=== PATIENT | female | born 1945 | race Caucasian/White ===

== ENCOUNTER → 2017-09-07 11:04 | Outpatient (CLI) | payer MEDICARE, MEDICAID, SELFPAY ==
[2017-09-07 12:57] LABS: Hemoglobin A1c 5.9 % (4.2-6.3)
[2017-09-07 13:11] LABS: BUN 15 mg/dL (7-18); Creatinine, Serum 0.67 mg/dL (0.55-1.02); EST Glomerular Filtration Rate 93 mL/min (>60); Est Glom Filt Rate - Afr Amer 112 mL/min (>60); Glucose 83 mg/dL (74-106)
[2017-09-07 13:12] LABS: AST(SGOT) 17 U/L (15-37); Alanine Aminotransfer ALT/SGPT 21 U/L (13-56); Albumin, Serum 3.8 g/dL (3.2-5.0); Alkaline Phosphatase 72 U/L (45-117); Anion Gap 8 (5-15); BUN/Creat Ratio 22.5 RATIO (10-20); Bilirubin, Direct 0.07 mg/dL (0.00-0.30); Calcium,Total 9.1 mg/dL (8.5-10.1); Chloride 107 mmol/L (98-107); Cholesterol 190 mg/dL (200); Globulin 3.3 g/dL (2.2-4.2); High Density Lipoprotein 56 mg/dL; Protein, Total 7.1 g/dL (6.4-8.2); Sodium Level 140 mmol/L (136-145); Triglycerides 192 mg/dL; Very Low Density Lipoprotein 38 mg/dL (5-40)
[2017-09-07 14:30] LABS: Microalbumin,Random Urine < 5.0 mg/L (NO RANGE EST.)
== END ==
PROVIDERS: Family Provider Family Medicine; PCP Family Medicine; Visit Provider Family Medicine
DX: E11.9 Type 2 diabetes mellitus without complications (principal); I10 Essential (primary) hypertension
CPT/HCPCS: 36415; 80048; 80061; 80076; 82043; 82570; 83036

== ENCOUNTER → 2018-05-08 10:16 | Outpatient (CLI) | payer MEDICARE, MEDICAID, SELFPAY ==
--- NOTE | 2018-05-08 10:21 | BI_ITS ---
MAMMOGRAPHY - BILATERAL SCREENING 3-D NALLLEY SYNTHESIS REASON FOR EXAM: Female, 72 years old. Bilateral Screening 3-D tomosynthesis PERTINENT HISTORY: History of breast cancer in 2 sisters. History of stereotactic biopsy. Prior bilateral excisional breast biopsies. TECHNIQUE: Digital bilateral breast nallely (3D mammographic acquisition) in the CC and MLO projections. 2-D mediolateral oblique (MLO) and craniocaudad (CC) views of both breasts were obtained. CAD: Full Field Digital Mammography with Computer Added Detection was performed. COMPARISON: November 10, 2016, October 04, 2015 FINDINGS: The breast composition is extremely dense tissue. Scattered benign calcifications are seen. No dense spiculated masses or suspicious microcalcifications are identified. No architectural distortion is identified. There is no skin thickening or retraction. There has been no significant change since the prior study. BI/SCREENING MAMM (CAD), BILAT IMPRESSION: No mammographic signs of malignancy. Routine yearly mammograms recommended. ASSESSMENT CATEGORY: BIRADS Category 2: Benign. A letter regarding these results will be sent to the patient by the facility within 30 days. FOLLOW UP RECOMMENDATION: Yearly follow up mammogram recommended. (A) Approximately 10% of breast cancers are not detected by mammography. A normal mammogram should not delay biopsy of a clinically suspicious abnormality. Electronically Signed: Tobias Shepherd MD at 12:05 EST , Service support ,
--- NOTE | 2018-05-08 10:32 | BD_ITS ---
STUDY: DUAL ENERGY X-RAY ABSORPTIOMETRY / DXA REASON FOR EXAM: Female, 72 years old. The patient is postmenopausal. Loss of height. TECHNIQUE: Bone Mineral Density (BMD) measurements of lumbar spine and bilateral hips were obtained. COMPARISON: Comparison is made with prior study dated August 25, 2014. FINDINGS: Lumbar Spine (L1-L4): g/cm2 (0.822) / T-score (-3.0) / Z-score (-1.3) Findings are suggestive of osteoporosis with a high fracture risk. Increased kyphosis. Left Femur Total: g/cm2 (0.714) / T-score (-2.3) / Z-score (-0.8) Left Femoral Neck: g/cm2 (0.711) / T-score (-2.4) / Z-score (-0.6) Right Femur Total: g/cm2 (0.720) / T-score (-2.3) / Z-score (-0.7) Right Femoral Neck: g/cm2 (0.757) / T-score (-2.0) / Z-score (0.3) The T-Scores on the most recent prior examination were: Lumbar Spine (L1-L4): There has been worsening of bone density since the previous examination. Left Femur Total: which represents an improvement of 0.1%. Right Femur Total: which represents a worsening of 0.8%. BD/Dexa Bone Density Study IMPRESSION: The patient is considered osteoporotic as outlined below according to World Perico Organization (WHO) criteria with a high fracture risk. There has been worsening of bone density since the previous examination. Reference Information: The T-score is the number of standard deviations above or below the standard which is normal for young adults at their peak bone mineral density. The World Health Organization (WHO) interprets the T-scores as follows: Above -1 Normal bone density Between -1 and -2.5 Osteopenia Equal to / or below -2.5 Osteoporosis As a practical clinical guideline, osteopenia may be graded as follows: Mild -1 through -1.5 Moderate -1.6 through -2.0 Severe -2.1 through -2.4 The Z-score is the number of standard deviations above or below age-matched controls. A Z-score of less than -1.5 would be considered abnormal. References: 1. NIH Osteoporosis and Related Bone Diseases http://www.osteo.org 2. International Society for Clinical Densitometry http://www.iscd.org 3. National Osteoporosis Foundation http://www.nof.org Electronically Signed: Shay Montez MD at 7:47 EST Tel [phone], Service support ,
== END ==
PROVIDERS: Family Provider Family Medicine; PCP Family Medicine; Referring Provider Family Medicine; Visit Provider Family Medicine
DX: N95.9 Unspecified menopausal and perimenopausal disorder (principal); Z12.31 Encounter for screening mammogram for malignant neoplasm of breast
CPT/HCPCS: 77063; 77067; 77080

== ENCOUNTER → 2018-06-28 16:07 | Outpatient (CLI) | payer MEDICARE, MEDICAID, SELFPAY ==
--- NOTE | 2018-06-28 11:45 | LES_PTH ---
PATIENT: JOSE FONTANEZ LOC: [facility] U#:[id number] AGE/SX: 79/F ROOM: RE06/28/[address]: Dr. Liza Rose MD : 1945 BED: DIS: SPEC #: [id number] RECD: 06/28/18 15:28 STATUS: ALIREZA EB #: [id number] JASON: 06/28/18 11:[address]: Liza Rose DEPT: SURGICAL PATHOLOGY RECD BY: Juan Palacios Tissues: Inguinal region, NOS Procedures: Surgery Specimen Level IV HEADER OPERATION: Neoplasm excision PRE-OP DIAGNOSIS: Neoplasm of left groin TISSUE SUBMITTED: Neoplasm of left groin MICROSCOPIC DIAGNOSIS Left groin neoplasm, excisional biopsy: Basal cell carcinoma with focal ulceration (0.5 cm in greatest width), completely excised in the planes of sections examined. SJ:bharat 07/02/18 COMMENT Case has been reviewed in consultation with Dr. Mast who concurs with the above diagnosis. IDC:AM MICROSCOPIC DESCRIPTION Slides are reviewed. GROSS DESCRIPTION Received is one container labeled with the patient's name and not further designated. The specimen consists of an irregular piece of an-white skin measuring 1.8 x 0.7 cm and up to 0.2 cm in thickness. The skin surface shows an irregular brownish lesion measuring 0.5 x 0.5 cm. The specimen is inked and submitted entirely in one cassette. It will be serially sectioned at the time of embedding. / SJ:bharat 07/01/18 TC:0 CPT: 78766
== END ==
PROVIDERS: Family Provider Family Medicine; PCP Family Medicine; Referring Provider Family Medicine; Visit Provider Family Medicine
DX: D49.89 Neoplasm of unspecified behavior of other specified sites (principal)
CPT/HCPCS: 88305

== ENCOUNTER → 2018-11-19 08:38 | Outpatient (CLI) | payer MEDICARE, MEDICAID, SELFPAY ==
--- NOTE | 2018-11-19 08:44 | RAD_ITS ---
STUDY: X-RAY - RIGHT KNEE REASON FOR EXAM: Female, 73 years old. Right knee pain. TECHNIQUE: 4 view(s) of the knee. COMPARISON: None. FINDINGS: Normal visualized distal femur. Normal visualized proximal tibia and fibula. There is arthrosis of the proximal tibiofibular articulation. There is no acute fracture, dislocation or destructive osseous pathology. There is moderate degenerative arthrosis of the medial femorotibial compartment with moderate joint space narrowing. There is mild degenerative arthrosis of the lateral femorotibial compartment. There is moderate degenerative arthrosis of the patellofemoral articulation. The soft tissue structures are unremarkable. RAD/Knee 4 or More Views IMPRESSION: Degenerative arthrosis. Electronically Signed: Jose Andrade DO at 16:53 EDT Tel [phone], Service support ,
== END ==
PROVIDERS: Family Provider Family Medicine; PCP Family Medicine; Referring Provider Family Medicine; Visit Provider Family Medicine
DX: M17.11 Unilateral primary osteoarthritis, right knee (principal)
CPT/HCPCS: 73564

== ENCOUNTER 2018-12-23 07:00 | Outpatient (RCR) | payer MEDICARE, MEDICAID, SELFPAY ==
--- NOTE | 2018-11-26 09:00 | HP.PTEVAL ---
Patient's Visit Information JOSE FONTANEZ is a 73 year old F referred to Physical Therapy by Liza Rose MD with a diagnosis of Right Knee OA. Date of Evaluation: 11/26/18 Physical Therapist: April Green DPT - Visit Plan Frequency: 2x /Week Duration: 4 Weeks Plan: Focus on LE and core strength for functional mobility- Right Knee OA. 11/26/17 HEP given: bolster extn, quad set, SLR (knee straight or bent), hip add with ball, hip abduction. - Subjective Findings: Patient reports right knee pain about 2 years- insidous onset. Saw Dr. Arguelles who took x-rays and diagnosed with OA. Worst is when she sits for a while then gets up and tries to move and she can't stand for a long period of time (anything over 5 min). Pain is located along the whole knee- hard to pinpoint an exact location. Does radiate to the calf but not to the foot. Describes the pain as achy but other times its a sharp pain- feels like it catches. Sometimes it feels like it juju under her and it feels unstable. No N/T in the LE. No hip or back pain. Worst: last 48 hours-4/10 in the last week: 11/20 Best: 0/10 Eases: Ibuprofen, rest. Sleep: disturbed- hard to get comfortable back or side sleeper. X-rays showed moderate arthritis. A few years ago they wanted to do surgery but it was not a good time in her life. Very active in her everyday tasks. Work: does not work outside of her home. PMHx: DM, anxiety, allergies. Meds: Boneva, Singulair, Zyrtec. - Objective Posture: FH, RS- can correct but does not maintain. Gait: from standing after sitting- pt had to stand for 15 seconds before she took her first step- the first steps were severely antalgic- it smoothed out at as she ambulated. She has decreased step on the right LE with poor heel/toe pattern. Stairs: asc- recip with 2 HR- circumduction to place on the next step. Desc non recip sideways with double rail. HR/TR able with UE A and reports discomfort. SLS: WS but reports pain- unable to remove hands from wall. Palpation: tender along medial and lateral joint line. ROM: 25-115 degrees. Sensation: WFL to gross touch throughout LE. Strength: Ankle: 4+/5, Knee: quad set not visible- SLR- can lift approx 5 inches off table then requires A- can not hold. Hip: flexion: 2+/5, Extn: 3+/5, Add: 4-/5, Abd: 4-/5, Core: poor. Flex: HS: severe, Gastroc: moderate - Goals Goal 1:: Patient will be I with HEP and progression Goal Time Frame: 4-6 Weeks Goal 2:: Patient will ambulate >300 feet with a normalized gait pattern Goal Time Frame: 4-6 Weeks Goal 3:: Patient will demo 0 degrees of extension of the right knee Goal Time Frame: 4-6 Weeks Goal 4:: Patient will asc/desc 8 stairs with 2 HR and good pattern Goal Time Frame: 4-6 Weeks - Rehabilitation Potential Physical Therapy Diagnosis: Patient presents with hypomobility- she has decreased ROM, strength and muscular endurance in the right knee leading to abnormal gait and increased pain with ADL's. Rehabilitation Potential: Fair - Anticipated Interventions Patient/Client Instruction: Educate patient on: Benefits of Fitness Program Therapeutic Exercise to Include: Strength training, Endurance training, Balance training, Body mechanics, Postural training, Flexibilty training, Gait and locomotor training, Passive ROM, Active ROM, Dynamic Lumbar Stabilization For the Purpose of:: To improve muscle performance and motor function Functional Training to Include: Gait training TENS: Yes Cryotherapy (ice pack, ice massage): Yes Thermo therapy (hot pack): Yes Ultrasound (thermal/non thermal): Yes For the Purpose of:: To decrease pain Thank you for the opportunity to evaluate your patient. For Medicare and Medicare HMO plans, please review the plan of care and approve it. It will need to be FAXED BACK to us at [phone] for Medicare purposes. For Medicare only, by signing this I certify the plan of care. Please let me know if there are questions or concerns regarding this plan of care. Physician Signature: Date:
--- NOTE | 2018-12-23 07:26 | HP.PTREVAL ---
Liza Rose MD, It has been my pleasure to treat JOSE FONTANEZ over the last 8 visits for Right Knee OA. Please see the progress note below for an update on the physical therapy plan of care! Subjective: Patient reports that she had a minor flare when she was packing this weekend. The knee is better depending on what she does. When you she stands she has to give it a minute- depends on how long she has to sit. Worst: 3/10 Best: 0/10. Feels that she can continue I home exercise unless it flares up really bad. Objective/Function: Posture: FH, RS- can correct but does not maintain. Gait: from standing after sitting- pt had to stand for 5 seconds before she took her first step- the first steps were moderatly antalgic- it smoothed out at as she ambulated. She has decreased step on the right LE with decreased heel/toe pattern. Stairs: asc/desc- recip with 1 HR- HR/TR able with UE A. SLS: WS no pain- unable to remove hands from wall. Palpation: not tender ROM: 10-115 degrees. Sensation: WFL to gross touch throughout LE. Strength: Ankle: 5/5, Knee: quad set visible- SLR- can perform I Hip: flexion: 4-/5, Extn: 4/5, Add: 4+/5, Abd: 4+/5, Core: fair. Flex: HS: severe, Gastroc: moderate Plan Plan: Discharge to I HEP Goals Goal 1:: Patient will be I with HEP and progression Goal Time Frame: 4-6 Weeks Goal Progress: Goal Met Goal 2:: Patient will ambulate >300 feet with a normalized gait pattern Goal Time Frame: 4-6 Weeks Goal Progress: Progressing Goal 3:: Patient will demo 0 degrees of extension of the right knee Goal Time Frame: 4-6 Weeks Goal Progress: Progressing Goal 4:: Patient will asc/desc 8 stairs with 2 HR and good pattern Goal Time Frame: 4-6 Weeks Goal Progress: Progressing Anticipated Interventions Patient/Client Instruction: Educate patient on: Benefits of Fitness Program Therapeutic Exercise to Include: Strength training, Endurance training, Balance training, Body mechanics, Postural training, Flexibilty training, Gait and locomotor training, Passive ROM, Active ROM, Dynamic Lumbar Stabilization For the Purpose of:: To improve muscle performance and motor function Functional Training to Include: Gait training TENS: Yes Cryotherapy (ice pack, ice massage): Yes Thermo therapy (hot pack): Yes Ultrasound (thermal/non thermal): Yes For the Purpose of:: To decrease pain Please do not hesitate to contact me at [phone] by phone or if you have questions or concerns regarding this new plan of care! Sincerely, CHELLY AlvaradoT
--- NOTE | 2019-02-21 08:14 | HP.PT.NRP ---
HP - Discharge Summary (1) - Patient Information JOSE FONTANEZ was seen in my office for initial evaluation on 11/26/18. The following Plan of Care was established for this patient: Initial Frequency: 2x /Week Initial Duration: 4 Weeks - Anticipated Interventions Patient/Client Instruction: Educate patient on: Benefits of Fitness Program Therapeutic Exercise to Include: Strength training, Endurance training, Balance training, Body mechanics, Postural training, Flexibilty training, Gait and locomotor training, Passive ROM, Active ROM, Dynamic Lumbar Stabilization For the Purpose of:: To improve muscle performance and motor function Functional Training to Include: Gait training TENS: Yes Cryotherapy (ice pack, ice massage): Yes Thermo therapy (hot pack): Yes Ultrasound (thermal/non thermal): Yes For the Purpose of:: To decrease pain This patient was last seen in our office . Pertinent comments regarding their Physical therapy will appear below: Patient has not attended PT in over 8 weeks- appropriate for d/c and return to MD for further evaluation as needed At this point I will be discontinuing this patient from physical therapy. I would be happy to see this patient again in the future if found appropriate by the physician. Thank you! CHELLY AlvaradoT
== END 2018-12-23 19:00 | disposition home or self-care (01) ==
LOC: PT 07:00
PROVIDERS: Family Provider Family Medicine; PCP Family Medicine; Referring Provider Family Medicine; Visit Provider Family Medicine
DX: M17.11 Unilateral primary osteoarthritis, right knee (principal)
CPT/HCPCS: 97110; 97161; 97164

== ENCOUNTER → 2019-04-02 08:40 | Outpatient (CLI) | payer MEDICARE, MEDICAID, SELFPAY ==
--- NOTE | 2019-04-02 08:49 | RAD_ITS ---
HISTORY: pain under right breast, NKI EXAMINATION/TECHNIQUE: XR Ribs Unilateral W/ PA Chest Min 3 Views: Right COMPARISON: None FINDINGS: LINES/DEVICES: 2 surgical clips within the right breast likely related to imaging guided biopsies LUNGS: Age related pulmonary fibrosis and pulmonary hyperexpansion is mild No pneumothorax. MEDIASTINUM AND CARDIOVASCULAR STRUCTURES: Cardiac silhouette not enlarged. Central airways and mediastinal contour are unremarkable. RIBS AND OSSEOUS STRUCTURES: Unremarkable. No evidence of displaced rib fractures. Levoscoliosis to the upper thoracic spine is mild RAD/Ribs Uni Min 3V w/PA Chest IMPRESSION: Negative chest and ribs series. at 0307 Reported and signed by: Ivan Taylor MD Electronically Signed: Ivan Taylor MD at 3:06 EST Tel , Service support ,
== END ==
PROVIDERS: Family Provider Family Medicine; PCP Family Medicine; Referring Provider Family Medicine; Visit Provider Family Medicine
DX: N64.4 Mastodynia (principal)
CPT/HCPCS: 71101

== ENCOUNTER → 2019-04-04 08:55 | Outpatient (CLI) | payer MEDICARE, MEDICAID, SELFPAY ==
--- NOTE | 2019-04-04 09:19 | US_ITS ---
STUDY: ULTRASOUND BREAST - RIGHT REASON FOR EXAM: Female, 73 years old. TECHNIQUE: Axial and longitudinal images of the RIGHT breast were performed with a high resolution ultrasound transducer. # OF IMAGES: 15 COMPARISON: None. FINDINGS: RIGHT Breast: There is slight prominence of the fibroglandular tissue without evidence of any masses or cysts identified in the right base. US/Breast Limited Unilateral IMPRESSION: Negative ultrasound of the right breast Electronically Signed: Monet Kelley, at 12:14 EST Tel , Service support ,
--- NOTE | 2019-04-04 09:19 | BI_ITS ---
MAMMOGRAPHY - BILATERAL DIAGNOSTIC REASON FOR EXAM: Female, 73 years old. One-week history of breast pain in the lower inner quadrant of the right breast. PERTINENT HISTORY: Sisters with breast cancer. Remote right excisional breast biopsies and ultrasound guided right breast biopsy. TECHNIQUE: Digital bilateral breast titus (3D mammographic acquisition) in the CC and MLO projections. 2-D mediolateral oblique (MLO) and craniocaudad (CC) views of both breasts were obtained. CAD: Full Field Digital Mammography with Computer Added Detection was performed. COMPARISON: Comparison is made with prior examination dated May 08, 2018 and November 10, 2016. FINDINGS: Breast Composition: The breasts are extremely dense, which lowers the sensitivity of mammography. There are no dominant masses or suspicious calcifications. 2 tissue markers are once again seen in the retroareolar region of the right breast. Stable calcifications in the upper outer quadrant of the left breast suggestive of calcifying fibroadenoma. No other significant abnormalities are identified. There has been no significant change since the prior study. BI/DIAG MAMM W/CADVAUGHN IMPRESSION: Stable bilateral diagnostic mammogram. One year follow-up recommended. (A) ASSESSMENT CATEGORY: BIRADS Category 2: Benign. A letter regarding these results will be sent to the patient by the facility within 30 days. Approximately 10% of breast cancers are not detected by mammography. A normal mammogram should not delay biopsy of a clinically suspicious abnormality. Electronically Signed: Shay Montez, at 10:41 EST , Service support ,
== END ==
PROVIDERS: Family Provider Family Medicine; PCP Family Medicine; Referring Provider Family Medicine; Visit Provider Family Medicine
DX: N64.4 Mastodynia (principal); Z80.3 Family history of malignant neoplasm of breast
CPT/HCPCS: 76642; 77062; 77066; G0279

== ENCOUNTER → 2019-08-06 17:27 | Outpatient (CLI) | payer MEDICARE, MEDICAID, SELFPAY | PROVIDERS: PCP Family Medicine; Referring Provider Family Medicine; Visit Provider Family Medicine | DX: R10.2 Pelvic and perineal pain (principal) | CPT/HCPCS: 87086; 87088 ==

== ENCOUNTER → 2019-09-08 11:00 | Outpatient (CLI) | payer MEDICARE, MEDICAID, SELFPAY ==
--- NOTE | 2019-09-08 11:03 | VDLE_ITS ---
Reason For Study: Pain RIGHT GSV is normal. CFV is compressible, spontaneous, phasic, competent and demonstrates normal augmentation. FV is compressible, spontaneous, phasic, competent and demonstrates normal augmentation. POP V is compressible, spontaneous, phasic, competent and demonstrates normal augmentation. T/P Trunk is compressible. PTV is compressible. RT PerV is compressible. Procedure Exam performed in department. A preliminary report was called and/or faxed to [facility]. Interpretation Summary Deep veins of the right lower extremity are patent and compressible segmentally. There is no evidence of right lower extremity deep vein thrombosis. Valvular competence appears intact within the proximal deep venous system on the right . The right great saphenous vein appears patent and compressible segmentally. Ordering Physician: Liza Rose Referring Physician: Liza Rose Performed By: Torie Britt RVT
== END ==
PROVIDERS: PCP Family Medicine; Referring Provider Family Medicine; Visit Provider Family Medicine
DX: M79.604 Pain in right leg (principal)
CPT/HCPCS: 93971

== ENCOUNTER → 2019-09-15 17:07 | Outpatient (CLI) | payer MEDICARE, MEDICAID, SELFPAY ==
--- NOTE | 2019-09-15 17:10 | RAD_ITS ---
STUDY: X-RAY - LEFT FOOT CLINICAL: Female, 73 years old. left foot pain and swelling, unsure of injury TECHNIQUE: 3 view(s) of the foot. COMPARISON: None. FINDINGS: Moderate plantar heel spur. Normal talus, calcaneus, and tarsal bones. Normal visualized subtalar, talonavicular, calcaneocuboid, tarsal and tarsometatarsal articulations. Normal metatarsi. Normal metatarsophalangeal joint of the great toe. Normal tibial and fibular sesamoid bones. Normal interphalangeal joint of the great toe. Normal phalanges of the great toe. Normal second through fifth metatarsophalangeal joints. Normal interphalangeal joints and phalanges of the lesser toes. The soft tissue structures are unremarkable. RAD/Foot min 3 Views IMPRESSION: Moderate heel spur otherwise negative Electronically Signed: Desmond Bryant MD at 23:33 EDT , Service support ,
== END ==
PROVIDERS: PCP Family Medicine; Referring Provider Family Medicine; Visit Provider Family Medicine
DX: M79.672 Pain in left foot (principal)
CPT/HCPCS: 73630

== ENCOUNTER → 2019-11-03 16:43 | Outpatient (CLI) | payer MEDICARE, MEDICAID, SELFPAY ==
--- NOTE | 2019-11-03 16:46 | RAD_ITS ---
STUDY: X-RAY - UNILATERAL RIBS ( RIGHT ) WITH CHEST REASON FOR EXAM: Female, 74 years old. Rib and chest pain TECHNIQUE - RIBS: 2 view(s) of the ribs. TECHNIQUE - CHEST: Single PA view of the chest. COMPARISON: 04/02/2019 FINDINGS - RIBS: Normal visualized ribs without a demonstrated fracture. FINDINGS - CHEST: There are interstitial changes of the lungs. There is no demonstrated pleural abnormality. Normal size heart. Normal mediastinum and ama. Normal visualized pulmonary arteries. Normal visualized aortic arch and descending thoracic aorta. Normal visualized thoracic spine. Normal visualized ribs, clavicles, and shoulders. There is no demonstrated abnormality of the visualized soft tissue structures of the upper abdomen. RAD/Ribs Uni Min 3V w/PA Chest IMPRESSION: RIBS: Normal x-ray examination of the ribs. CHEST: Chronic interstitial changes, no acute findings Electronically Signed: Jose Retana MD at 8:05 EDT , Service support ,
--- NOTE | 2019-11-03 16:46 | RAD_ITS ---
STUDY: X-RAY - LEFT WRIST REASON FOR EXAM: Female, 74 years old. FALL ONE HOUR AGO, BRUISING TO WRIST TECHNIQUE: 3 view(s) of the wrist were obtained. COMPARISON: None. FINDINGS: There is demineralization of the radius and ulna. There is mild arthrosis of the radiocarpal articulation. There is a neutral ulnar variance. There is demineralization of the carpal bones. There is intracarpal arthrosis between the scaphoid and trapezium. Remaining intercarpal joint spaces fairly well maintained. There is mild arthrosis of the carpometacarpal articulation of the thumb. Normal second through fifth carpometacarpal articulations. Normal visualized metacarpal bones. Mild nonspecific soft tissue swelling. There is no demonstrated acute fracture. However, wrist fractures in patients of this age can be subtle, if there is strong clinical concern of a fracture, recommend further evaluation with CT. RAD/Wrist min 3 Views IMPRESSION: Demineralization of the osseous structures with polyarticular arthrosis most notably between the scaphoid and trapezium. No demonstrated fracture, please see discussion above Mild nonspecific soft tissue swelling Electronically Signed: Jose Retana MD at 7:53 EDT , Service support ,
== END ==
PROVIDERS: PCP Family Medicine; Referring Provider Family Medicine; Visit Provider Family Medicine
DX: S60.211A Contusion of right wrist, initial encounter (principal); S60.212A Contusion of left wrist, initial encounter
CPT/HCPCS: 71101; 73110

== ENCOUNTER → 2019-11-26 11:50 | Outpatient (CLI) | payer MEDICARE, MEDICAID, SELFPAY ==
--- NOTE | 2019-11-26 11:53 | RAD_ITS ---
STUDY: X-RAY - UNILATERAL RIBS ( RIGHT ) WITH CHEST REASON FOR EXAM: Female, 74 years old. Fall. Lower axillary rib pain. TECHNIQUE - RIBS: 4 view(s) of the ribs. TECHNIQUE - CHEST: Single PA view of the chest. COMPARISON: Chest and right RIBS, November 03, 2019. FINDINGS - RIBS: Normal visualized ribs without a demonstrated fracture. FINDINGS - CHEST: The lungs are well expanded. There is no new mass or infiltrate. Mild chronic interstitial coarsening is again noted.. There is no demonstrated pleural abnormality. Normal size heart. Normal mediastinum and ama. Normal visualized pulmonary arteries. There is atherosclerotic calcification of the aortic arch with tortuosity. There are diffuse degenerative changes of the visualized thoracic spine. There is degenerative osteoarthritis of the bilateral shoulders. There is no demonstrated abnormality of the visualized soft tissue structures of the upper abdomen. RAD/Ribs Uni Min 3V w/PA Chest IMPRESSION: RIBS: Normal x-ray examination of the ribs. CHEST: No acute cardiopulmonary disease or interval change. Electronically Signed: Jose Andrade DO at 16:55 EDT Tel [phone], Service support ,
--- NOTE | 2019-11-26 11:53 | RAD_ITS ---
STUDY: X-RAY - ABDOMEN/PELVIS REASON FOR EXAM: Female, 74 years old. PAIN, CONSTIPATION TECHNIQUE: AP supine and upright views of the abdomen and pelvis. COMPARISON: None. FINDINGS: Normal visualized lung bases. There is an unremarkable bowel gas pattern. There is no demonstrated free abdominal air. The visualized liver, spleen and kidneys are grossly normal in size and morphology. Normal soft tissue structures. Normal visualized osseous structures. RAD/Abdomen Single View IMPRESSION: Normal x-ray examination of the abdomen and pelvis. Electronically Signed: Clem Mcclendon MD at 12:41 EDT Tel , Service support ,
== END ==
PROVIDERS: PCP Family Medicine; Referring Provider Nurse Practitioner Adult Health; Visit Provider Nurse Practitioner Adult Health
DX: R07.81 Pleurodynia (principal); R10.9 Unspecified abdominal pain
CPT/HCPCS: 71101; 74018

== ENCOUNTER → 2020-01-09 15:50 | Outpatient (CLI) | payer MEDICARE, MEDICAID, SELFPAY ==
--- NOTE | 2020-01-09 11:30 | LES_PTH ---
PATIENT: JOSE FONTANEZ LOC: [facility] U#:[id number] AGE/SX: 79/F ROOM: RE01/09/[address]: Dr. Miles Duran MD : 1945 BED: DIS: SPEC #: [id number] RECD: 01/09/20 15:16 STATUS: ALIREZA OLSENSamira #: [id number] JASON: 01/09/20 11:[address]: Miles Duran DEPT: SURGICAL PATHOLOGY RECD BY: Miles Pressley ENTERED: 01/12/20 09:07 SP TYPE: Lesion OTHR DR: Dr. Liza Rose MD Tissues: Skin of eyelid, NOS Procedures: Surgery Specimen Level IV HEADER OPERATION: Lesion excision LLL PRE-OP DIAGNOSIS: Lesion right lower lid TISSUE SUBMITTED: Lesion right lower lid MICROSCOPIC DIAGNOSIS Lesion right lower lid, excisional biopsy: Seborrheic keratosis. BJ:bharat 01/13/20 MICROSCOPIC DESCRIPTION Slides are reviewed. GROSS DESCRIPTION Received in fixative is one container labeled with the patient's name and designated LLL. The specimen consists of a piece of an-light brown skin measuring 0.3 x 0.2 x 0.1 cm. The specimen is totally submitted in one cassette. / SJ:bharat 01/12/20 TC:1 CPT: 49393
== END ==
PROVIDERS: PCP Family Medicine; Referring Provider Ophthalmology; Visit Provider Ophthalmology
DX: H02.9 Unspecified disorder of eyelid (principal)
CPT/HCPCS: 88305

== ENCOUNTER 2020-03-04 21:28 | Emergency (ER) | payer MEDICARE, MEDICAID, SELFPAY ==
[2020-03-04 21:29] VITALS: BP 142/79; PULSE 106; RESP 18; TEMP 39.4; O2SAT 93; BMI 31.1
[2020-03-04 22:32] VITALS: BP 132/69; PULSE 104; RESP 18; TEMP 39.3; O2SAT 96
--- NOTE | 2020-03-04 22:50 | RAD_ITS ---
STUDY: X-RAY CHEST REASON FOR EXAM: Female, 74 years old. POSITIVE COVID ON 02/19. last few days uncontrolled fever. TECHNIQUE: Single frontal view of the chest. COMPARISON: Chest radiograph from rib series 11/26/2019. FINDINGS: No pneumothorax or pleural effusion. Bilateral pulmonary infiltrates are present. More so within the left mid and lower lung zone. Normal size heart. Aortic calcifications. There are diffuse degenerative changes of the visualized thoracic spine. There is degenerative changes of the bilateral shoulders. There is no demonstrated abnormality of the visualized soft tissue structures of the upper abdomen. RAD/Chest 1 View (Portable) IMPRESSION: Bilateral pulmonary infiltrates. Nonspecific. Given patient''s history this could represent atypical viral infectious process such as Covid 19. Recommend follow-up imaging to ensure resolution. Electronically Signed: John Camarillo, at 23:06 EDT Tel , Service support ,
--- NOTE | 2020-03-04 22:52 | ED.DCSUM_ITS ---
History of Present Illness Chief Complaint: Fever Informant: Patient, Family Narrative: Patient is a 74-year-old female with a past medical history of diabetes who presents to the emergency department for fever. She states that she was diagnosed with Covid on 02/20/2020. She was concerned because her temperature was up to 104 at home. She tried to take Tylenol around 10 AM this morning but vomited it up immediately. She has not tried anything else for this. She denies any significant shortness of breath. She does have a mild cough that is nonproductive. She has been having intermittent nausea/vomiting. She had 2 episodes today. She denies any diarrhea. No abdominal pain or chest pain. Past Medical History - Allergies and Home Meds Allergies/Adverse Reactions: Allergies alendronate sodium [From Fosamax] Allergy (Verified 03/04/20 21:33) Itching amoxicillin [From Augmentin] Adverse Reaction (Verified 03/04/20 21:33) Diarrhea cephalexin [From Keflex] Adverse Reaction (Verified 03/04/20 21:33) NEEDS FOLLOW-UP tongue sore. not swollen clavulanic acid [From Augmentin] Adverse Reaction (Verified 03/04/20 21:33) Diarrhea Primary Care Physician: Liza Rose MD [Primary Care Provider] - Prior records reviewed: Yes Past Medical History: - - Diabetes Smoking Status: Former smoker Review of Systems All systems negative except as indicated General: Reports: Fever Eyes: Denies: Visual changes - bilaterally, Diplopia ENT: Denies: Rhinorrhea, Sore throat Cardiovascular: Denies: Chest pain, Palpitations Respiratory: Reports: Cough. Denies: Dyspnea, Dyspnea on exertion Gastrointestinal: Reports: Nausea, Vomiting. Denies: Abdominal pain, Diarrhea, Melena, Hematochezia Genitourinary: Denies: Dysuria, Hematuria, Frequency Musculoskeletal: Denies: Back pain, Extremity Pain Skin: Denies: Rash, Wounds Neurological: Denies: Headache, Weakness, Numbness Physical Exam Vital Signs/Narrative: Vital Signs Temp Pulse Resp BP Pulse Ox 03/04/20 21:29 102.9 F H 106 H 18 142/79 H 93 Inital Vital Signs reviewed: Yes General: Well nourished, Well developed, No Acute Distress Head: Normocephalic, Atraumatic Eyes: Perrl, EOMI ENT: Moist mucous membranes, No rhinorrhea Neck: Supple, Nontender Cardiovascular: Regular rhythm, No murmurs, Tachycardia Respiratory: No distress, CTA bilaterally, Chest nontender Abdomen: Soft, Nontender, Nondistended, Normal bowel sounds Back: Nontender, Normal Inspection Extremities: Nontender. Negative for: Edema, Calf Tenderness Skin: Normal color, No rash Neurological: Alert, Oriented x3, Cranial nerves II-XII grossly intact, Normal Strength, Normal Sensation Psychological: Normal affect, Normal Mood Diagnostic/Tx/Re-eval - Medical Decision Making Patient presents the emerge department after being diagnosed with coronavirus and she is having uncontrollable fevers. She is only try to take 1 dose of Tylenol earlier today but vomited it back up. Upon arrival to the emergency department she is febrile and mildly tachycardic. She otherwise in no acute distress. She denies any shortness of breath. Will check basic lab work, chest x-ray. Will give a dose of Zofran and retry dose of Tylenol. Patient's temperature did come down after the dose of Tylenol. She not have any repeat episodes of vomiting after the Zofran. She does feel much better at this time. X-ray did show infiltrates consistent with coronavirus. She does not have an elevated white blood cell count. Patient did make aware to me that she is currently on doxycycline. She can continue to take this. I will write a prescription for Zofran for home treatment of her nausea symptoms. She can continue to take Tylenol as needed. I did advise the patient to buy a pulse oximeter if she develops any shortness of breath to monitor oxygen saturation. If she develops any worsening symptoms she can return to the emergency department anytime. She understands and is agreeable this plan. Will discharge home in stable condition. All questions answered. ED Disposition - Plan for ED Patient: Disposition: Home or Assisted Living Diagnosis: Pneumonia due to 2019 novel coronavirus, Fever Instructions: ED Fever Control (Adult) Prescriptions: Ondansetron [Zofran Odt] 4 mg PO Q8H PRN PRN 3 Days #10 tab PRN Reason: Nausea/Vomiting Prescription Printed Referrals: Liza Rose MD [Primary Care Provider] -
[2020-03-04] MEDS: Ondansetron 4 MG/2 ML Vial IV (22:57)
[2020-03-04] MEDS: Acetaminophen 325 MG Tablet 650 MG PO (23:01)
[2020-03-04 23:09] LABS: Absolute Lymphocyte Count 1.14 X10^3/uL (0.83-4.51); Absolute Neutrophil Count 2.9 X10^3/uL (2.0-7.7); Basophil# 0.01 X10^3/uL; Basophil% 0.2 % (0-1); Hematocrit 40.9 % (37-47); Hemoglobin 13.6 g/dL (12.0-15.0); Lymphocyte # 1.14 X10^3/ul (4.0); Lymphocyte % 24.8 % (19-41); Mean Corp Hgb Conc 33.3 g/dL (32-36); Mean Corpuscular Hgb 29.7 pg (27.0-32.0); Mean Corpuscular Volume 89.3 fL (81-99); Mean Platelet Vol. 10.6 fl (6.2-12.0); Monocyte% 10.9 % (0-10); NRBC Flagged by Analyzer 0 % (0-5); Neutrophil # 2.94 X10^3/uL (2.7-7.7); Neutrophil % 63.9 % (47-70); Platelet Count 150 K/mm3 (150-450); RBC Distribution Width CV 12.8 % (11.6-14.6); RBC Distribution Width SD 42.2 fl (35.1-43.9); Red Blood Count 4.58 M/mm3 (4.2-5.4); White Blood Count 4.6 K/mm3 (4.4-11.0)
[2020-03-04 23:17] LABS: ALB/GLOB Ratio 0.9 RATIO (0.9-2.4); AST(SGOT) 17 U/L (15-37); Alanine Aminotransfer ALT/SGPT 17 U/L (13-56); Albumin, Serum 3.2 g/dL (3.2-5.0); Alkaline Phosphatase 86 U/L (45-117); Anion Gap 7 (5-15); BUN 11 mg/dL (7-18); BUN/Creat Ratio 14.8 RATIO (10-20); Calcium,Total 8.2 mg/dL (8.5-10.1); Chloride 105 mmol/L (98-107); Creatinine, Serum 0.74 mg/dL (0.55-1.02); EST Glomerular Filtration Rate 81 mL/min (>60); Est Glom Filt Rate - Afr Amer 98 mL/min (>60); Estimated Creatinine Clearance 41.45 ml/min; Globulin 3.7 g/dL (2.2-4.2); Glucose 125 mg/dL (74-106); Lactic Acid 0.8 mmol/L (0.4-1.9); Potassium 3.4 mmol/L (3.5-5.1); Protein, Total 6.9 g/dL (6.4-8.2); Sodium Level 137 mmol/L (136-145)
[2020-03-05 00:13] VITALS: BP 123/67; PULSE 105; RESP 18; TEMP 37.2; O2SAT 94
[2020-03-05 01:08] VITALS: BP 123/72; PULSE 85; RESP 20; O2SAT 94
== END 2020-03-05 01:05 | disposition home or self-care (01) ==
PROVIDERS: Emergency Provider Emergency Medicine; PCP Family Medicine
DX: U07.1 COVID-19 (principal); J12.89 Other viral pneumonia; R50.9 Fever, unspecified; Z87.891 Personal history of nicotine dependence
CPT/HCPCS: 71045; 80053; 83605; 84484; 85025; 87040; 96374; 99285; J7030; A4216; J2405

== ENCOUNTER → 2020-05-04 14:06 | Outpatient (CLI) | payer MEDICARE, MEDICAID, SELFPAY | PROVIDERS: PCP Family Medicine; Visit Provider Family Medicine | DX: R35.0 Frequency of micturition (principal) | CPT/HCPCS: 87086 ==

== ENCOUNTER → 2020-08-24 12:48 | Outpatient (CLI) | payer MEDICARE, MEDICAID, SELFPAY ==
[2020-08-24 15:51] LABS: AST(SGOT) 16 U/L (15-37); Alanine Aminotransfer ALT/SGPT 23 U/L (13-56); Anion Gap 5 (5-15); BUN 14 mg/dL (7-18); BUN/Creat Ratio 19.4 RATIO (10-20); Calcium,Total 9.4 mg/dL (8.5-10.1); Chloride 105 mmol/L (98-107); Cholesterol 230 mg/dL (200); Creatinine, Serum 0.72 mg/dL (0.55-1.02); EST Glomerular Filtration Rate 84 mL/min (>60); Est Glom Filt Rate - Afr Amer 102 mL/min (>60); Glucose 91 mg/dL (74-106); High Density Lipoprotein 63 mg/dL; Sodium Level 139 mmol/L (136-145); Triglycerides 215 mg/dL; Very Low Density Lipoprotein 43 mg/dL (5-40)
[2020-08-24 15:55] LABS: Hemoglobin A1c 5.5 % (3.8-5.6)
[2020-08-24 16:19] LABS: Microalbumin,Random Urine 6.7 mg/L (NO RANGE EST.); Microalbumin:Creatinine Ratio 9.5 mg/g CRE (<30 mg/g CRE)
== END ==
PROVIDERS: PCP Family Medicine; Referring Provider Family Medicine; Visit Provider Family Medicine
DX: E11.9 Type 2 diabetes mellitus without complications (principal); E78.5 Hyperlipidemia, unspecified
CPT/HCPCS: 36415; 80048; 80061; 82043; 82570; 83036; 84450; 84460

== ENCOUNTER → 2020-10-14 15:09 | Outpatient (CLI) | payer MEDICARE, MEDICAID, SELFPAY ==
--- NOTE | 2020-10-14 15:12 | VDLE_ITS ---
Reason For Study: Leg pain RIGHT GSV is normal. CFV is compressible, spontaneous, phasic, competent and demonstrates normal augmentation. FV is compressible, spontaneous, phasic, competent and demonstrates normal augmentation. POP V is compressible, spontaneous, phasic, competent and demonstrates normal augmentation. T/P Trunk is compressible. PTV is compressible. RT PerV is compressible. Nonvascularized structure notes in the popliteal space measuring approximently 1.18 x 1.17 x 5.53 cm. Procedure This is a venous duplex using B-mode, color flow and spectral Doppler. Exam performed in department. A preliminary report was called and/or faxed to [facility]. VL/Venous Duplex US, Unilateral Interpretation Summary Deep veins of the right lower extremity are patent and compressible segmentally . There is no evidence of right lower extremity deep vein thrombosis. Valvular competence karl ears intact within the proximal deep venous system on the right . The right great saphenous vein a ppears patent and compressible segmentally. A non-vascular, hypoechoic structure is noted in the right popliteal space, measuring 1.18 cm x 1.17 cm x 5.53 cm. This may represent a poplteal cys t. Clinical correlation is advised. Ordering Physician: Farhad Kimble Referring Physician: Liza Rose M.D. Performed By: Torie Britt RVT
== END ==
PROVIDERS: PCP Family Medicine; Referring Provider Family Medicine; Visit Provider Family Medicine
DX: M79.604 Pain in right leg (principal)
CPT/HCPCS: 93971

== ENCOUNTER 2020-11-25 16:21 | Emergency (ER) | payer MEDICARE, MEDICAID, SELFPAY ==
[2020-11-25 16:23] VITALS: BP 132/76; PULSE 65; RESP 16; TEMP 36.7; O2SAT 97; BMI 33.5
--- NOTE | 2020-11-25 17:56 | EX.ED.DYSGE1 ---
HPI History of Present Illness Chief Complaint: Sore Throat Detail of Chief Complaint: Pain to left side of neck Informant: patient Narrative Narrative: Patient presents to the emergency department with sore throat and pain left-sided of her neck that started out a week ago. Patient was seen by her primary care physician initially and told she had a viral pharyngitis. She had a negative strep test about 1 week ago. Patient states that she felt somewhat better initially but then the pain became more severe and again was seen yesterday by her primary care physician. Patient presents again with continued pain in her throat especially the left side. Patient states that it hurts to swallow. She rates her pain an 8 out of 10. She denies fevers or recent illness otherwise. Prior similar symptoms: No PFSH PFSH Home Medications cetirizine 10 mg PO DAILY 03/04/20 [History Last Taken Unknown] montelukast 10 mg PO DAILY 03/04/20 [History Last Taken Unknown] atorvastatin [Lipitor] 10 mg PO DAILY 11/25/20 [History Last Taken Unknown] multivitamin 1 tab PO DAILY 11/25/20 [History Last Taken Unknown] Allergy/AdvReac Type Severity Reaction Status Date / Time alendronate sodium Allergy Itching Verified 11/25/20 16:22 [From Fosamax] amoxicillin [From Augmentin] AdvReac Diarrhea Verified 11/25/20 16:22 cephalexin [From Keflex] AdvReac NEEDS Verified 11/25/20 16:22 FOLLOW-UP clavulanic acid AdvReac Diarrhea Verified 11/25/20 16:22 [From Augmentin] Social History Smoking Status: Former smoker ROS ROS ED Constitutional Constitutional ED: Reports systems reviewed and no addt'l complaints, except as documented; Denies body ache(s), change in weight or chills Eyes Eyes: Denies acute decrease in peripheral vision, change in vision, double vision or loss of vision ENT ENT ED: Reports none and sore throat; Denies ear pain, lip swelling, loss taste/smell, neck pain or otalgia Cardiovascular Cardiovascular: Reports none; Denies abdominal pain, chest pain with activity, leg edema, lightheadedness, palpitations, rapid heart rate or syncope Respiratory/Chest Respiratory/Chest: Reports none; Denies change in mental status, dry cough, dyspnea, hemoptysis, shortness of breath at rest or shortness of breath with exertion Gastrointestinal Gastrointestinal: Reports none; Denies abdominal pain, change in stool character, diarrhea, hematemesis, hematochezia, melena, rectal bleeding or vomiting Genitourinary Genitourinary ED: Reports none; Denies abdominal discomfort, anuria, dysuria, genital pain or polyuria Musculoskeletal Musculoskeletal: Reports none; Denies arthralgias, back pain, difficulty walking, extremity pain, muscle weakness or myalgias Integumentary Reports none; Denies abscess or rash Neurologic Neurologic: Reports none; Denies abnormal gait, confusion, focal weakness, frequent falls, headache(s), loss of vision, numbness, paresthesias, radicular pain, vertigo or weakness Psychiatric Psychiatric: Reports systems reviewed and no addt'l complaints, except as documented and none; Denies behavioral changes, confusion, difficulty concentrating, hallucinations, suicidal ideation, tactile hallucinations or visual hallucinations Endocrine Endocrinology: Denies none, cold intolerance, excessive sweating, fatigue or heat intolerance Hematologic/Lymphatic Hematologic/Lymphatic: Reports none; Denies anemia, easy bleeding or easy bruising Allergic/Immunologic Allergic/Immunologic ED: Denies as per HPI, none, lip swelling, mouth swelling, throat swelling, tongue swelling or hives EXAM Physical Exam Const Vital Signs: 11/25/20 16:23 Temperature 98.0 F Temperature Source Temporal Pulse Rate 65 Respiratory Rate 16 Blood Pressure 132/76 H Blood Pressure Mean 94 Pulse Ox 97 Oxygen Delivery Method Room Air Positive well nourished and well developed General Appearance ED: well developed and NAD HEENT Reports TM's clear and moist mucous membranes HEENT Narrative: No masses or adenopathy palpated in the neck. Pharynx nonerythematous. Uvula midline without trismus. normocephalic and atraumatic; Negative for trauma or tenderness Tympanic Membrane ED: Yes TM's clear Eyes PERRL and EOMs intact bilaterally General Eye ED: Negative for pale conjunctiva or scleral icterus Neck no lymphadenopathy, supple and no JVD General: Negative for tenderness Chest Wall inspection of chest normal and palpation of chest normal Chest: Negative for tenderness Resp normal respiratory effort and clear to auscultation bilaterally Effort and Inspection: Negative for respiratory distress or pain with movement Auscultation: Negative for rhonchi, wheezes or diminished lung sounds Cardio regular rate, regular rhythm, S1 normal heart sound, S2 normal heart sound and no murmurs Peripheral Pulses: pulses 2+ throughout GI normal to inspection, nondistended, normoactive bowel sounds, soft to palpation, non-tender, non-distended and no masses Back/Spine no CVA tenderness and no thoracic nor lumbar tenderness Extremity normal to inspection General Extremety ED: Negative for edema General Extremity: Negative for edema Neuro oriented x3, CN's II-XII intact bilaterally, no sensory deficits noted and gait normal Sensorium / Orientation: awake, alert, oriented to person, oriented to place and oriented to time Motor Exam: strength 5/5 throughout and strength abnormal Psych mental status grossly normal Skin no rashes or lesions noted and no wounds MDM MDM MDM Narrative Medical decision making narrative: Patient's labs were unremarkable. CT scan of the soft tissue neck showed a 2.2 cm nodule of the left thyroid and they recommended ultrasound follow-up. I discussed this with the patient and her family members. Patient will be referred to ENT as well. Lab Data Attestation: I reviewed the patient's lab results. Labs: Laboratory Results - last 24 hr 11/25/20 11/25/20 18:30 18:30 WBC 8.2 RBC 4.69 Hgb 14.1 Hct 42.5 MCV 90.6 MCH 30.1 MCHC 33.2 RDW Std Deviation 41.9 RDW Coeff of Francy 12.7 Plt Count 233 MPV 9.5 Immature Gran % (Auto) 0.500 Neut % (Auto) 56.4 Lymph % (Auto) 31.4 [place] % (Auto) 9.4 Eos % (Auto) 2.2 Baso % (Auto) 0.1 Absolute Neuts (auto) 4.6 Absolute Lymphs (auto) 2.58 Nucleated RBC % 0 Sodium 140 Potassium 4.2 Chloride 103 Carbon Dioxide 31.0 Anion Gap 6 BUN 10 Creatinine 0.74 Estim Creat Clear Calc 39.04 Est GFR (MDRD) Af Amer 99 Est GFR (MDRD) Non-Af 82 BUN/Creatinine Ratio 13.6 Glucose 99 Calcium 9.2 Troponin I High Sens 3.6 Radiography Diagnostic Testing: Radiology Impression Soft Tissue Neck CT 11/25/20 19:00 IMPRESSION: No acute findings in the neck. 2.2 cm nodule left lobe thyroid. If not previously evaluated, routine thyroid ultrasound recommended. Chronic left maxillary sinusitis. Individualized dose optimization techniques were used for this CT. at 1926 Reported and signed by: Randy Contreras MD Electronically Signed: Randy Contreras MD at 19:25 EDT Tel , Service support , EKG Initial EKG: Attestation: I personally reviewed and interpreted this EKG as follows: Comments: Sinus rhythm with a ventricular rate of [address] changes. Discharge Plan Triage Chief Complaint: Sore Throat ED Provider: Tomas Goldstein Dx/Rx/DC Orders Clinical Impression: Pharyngitis, Left thyroid nodule Instructions: Common Thyroid Problems, ED Pharyngitis, Viral Prescriptions: No Action montelukast 10 MG tablet 10 mg PO DAILY RF: 0 cetirizine 10 MG capsule 10 mg PO DAILY RF: 0 multivitamin Tablet 1 tab PO DAILY RF: 0 atorvastatin [Lipitor] 10 mg tablet 10 mg PO DAILY RF: 0 Primary Care Provider: Liza Rose Referrals: Liza Rose MD [Primary Care Provider] - 3-5 Days Leonid Muñiz MD [STAFF PHYSICIAN] - 3-5 Days Activity Restrictions/Additional Instructions: Follow-up with your family doctor regarding the nodule in your thyroid as you will need an ultrasound to further evaluate this. Disposition Disposition: Home, Self Care
--- NOTE | 2020-11-25 17:57 | EKG12_ITS ---
Test Reason : DYSRHYTHMIA Blood Pressure : / mmHG Vent. Rate : 067 BPM Atrial Rate : 067 BPM P-R Int : 156 ms QRS Dur : 084 ms QT Int : 396 ms P-R-T Axes : 069 048 048 degrees QTc Int : 418 ms Normal sinus rhythm Low voltage QRS Nonspecific ST abnormality Abnormal ECG Confirmed by ALE STORY, KONRAD ([id number]), editor in chief MARYLOU LOZANO ([id number]) on 11/29/2020 9:44:10 AM Referred By: GIANNA Confirmed By:LINDA AGUILERA MD
[2020-11-25 18:38] LABS: Absolute Lymphocyte Count 2.58 X10^3/uL (0.83-4.51); Absolute Neutrophil Count 4.6 X10^3/uL (2.0-7.7); Basophil# 0.01 X10^3/uL; Basophil% 0.1 % (0-1); Eosinophil# 0.18 X10^3/uL; Eosinophils% 2.2 % (0-5); Hematocrit 42.5 % (37-47); Hemoglobin 14.1 g/dL (12.0-15.0); Lymphocyte # 2.58 X10^3/ul (0.83-4.51); Lymphocyte % 31.4 % (19-41); Mean Corp Hgb Conc 33.2 g/dL (32-36); Mean Corpuscular Hgb 30.1 pg (27.0-32.0); Mean Corpuscular Volume 90.6 fL (81-99); Mean Platelet Vol. 9.5 fl (6.2-12.0); Monocyte# 0.77 X10^3/uL; Monocyte% 9.4 % (0-10); NRBC Flagged by Analyzer 0 % (0-5); Neutrophil # 4.64 X10^3/uL (2.7-7.7); Neutrophil % 56.4 % (47-70); Platelet Count 233 K/mm3 (150-450); RBC Distribution Width CV 12.7 % (11.6-14.6); RBC Distribution Width SD 41.9 fl (35.1-43.9); Red Blood Count 4.69 M/mm3 (4.2-5.4); White Blood Count 8.2 K/mm3 (4.4-11.0)
[2020-11-25 18:54] LABS: Anion Gap 6 (5-15); BUN 10 mg/dL (7-18); BUN/Creat Ratio 13.6 RATIO (10-20); Calcium,Total 9.2 mg/dL (8.5-10.1); Chloride 103 mmol/L (98-107); Creatinine, Serum 0.74 mg/dL (0.55-1.02); EST Glomerular Filtration Rate 82 mL/min (>60); Est Glom Filt Rate - Afr Amer 99 mL/min (>60); Estimated Creatinine Clearance 39.04 ml/min; Glucose 99 mg/dL (74-106); Potassium 4.2 mmol/L (3.5-5.1); Sodium Level 140 mmol/L (136-145); Troponin-I HS 3.6 pg/mL (3.0-53.7)
--- NOTE | 2020-11-25 19:00 | CT_ITS ---
HISTORY: sore throat EXAMINATION: CT Soft Tissue Neck W/ Contrast Injection TECHNIQUE: Helically acquired images were obtained of the neck following IV contrast. A radiation dose optimization technique was used for this scan. IV Contrast dosage and agent: 75mL [id number] COMPARISON: None FINDINGS: NASOPHARYNX: Unremarkable. SUPRAHYOID NECK: Unremarkable oropharynx, oral cavity, parapharyngeal space, and retropharyngeal space. INFRAHYOID NECK: Unremarkable larynx, hypopharynx, and supraglottis. THYROID: Enlarged left lobe with 2.2 cm low-attenuation nodule. SALIVARY GLANDS: Unremarkable. LYMPH NODES: No cervical or supraclavicular lymphadenopathy. VASCULAR STRUCTURES: Unremarkable. VISUALIZED PORTIONS OF THE ORBITS, PARANASAL SINUSES, MASTOID AIR CELLS AND SKULL BASE: Opacification of the left maxillary sinus with adjacent bony sclerosis and thickening. Opacification of left frontal air cell to the extent included. BONES: Degenerative changes. THORACIC INLET: Clear lung apices. CT/Soft Tissue Neck WITH Contrast IMPRESSION: No acute findings in the neck. 2.2 cm nodule left lobe thyroid. If not previously evaluated, routine thyroid ultrasound recommended. Chronic left maxillary sinusitis. Individualized dose optimization techniques were used for this CT. at 1926 Reported and signed by: Randy Contreras MD Electronically Signed: Randy Contreras MD at 19:25 EDT Tel , Service support ,
== END 2020-11-25 20:51 | disposition home or self-care (01) ==
PROVIDERS: Emergency Provider Emergency Medicine; PCP Family Medicine
DX: J02.9 Acute pharyngitis, unspecified (principal); E04.1 Nontoxic single thyroid nodule; Z87.891 Personal history of nicotine dependence; Z79.899 Other long term (current) drug therapy
CPT/HCPCS: 70491; 80048; 84484; 85025; 87880; 93005; 99284; Q9967; A4216

== ENCOUNTER → 2020-12-01 15:00 | Outpatient (CLI) | payer MEDICARE, MEDICAID, SELFPAY ==
[2020-11-25 16:23] VITALS: BMI 33.5
== END ==
PROVIDERS: PCP Family Medicine; Referring Provider Family Medicine; Visit Provider Family Medicine
DX: J02.9 Acute pharyngitis, unspecified (principal)
CPT/HCPCS: 87070

== ENCOUNTER → 2020-12-07 08:07 | Outpatient (CLI) | payer MEDICARE, MEDICAID, SELFPAY ==
[2020-11-25 16:23] VITALS: BMI 33.5
--- NOTE | 2020-12-07 08:12 | US_ITS ---
STUDY: THYROID ULTRASOUND REASON FOR EXAM: Female, 75 years old. NODULE TECHNIQUE: Ultrasound evaluation of the thyroid was performed with real-time and static palacio-scale imaging. COMPARISON: Comparison is made with prior CT scan of the neck dated 11/25/2020. FINDINGS: RIGHT LOBE: The right lobe of the thyroid gland measures 4.4 cm x 1.5 cm x 1.8 cm. There is a homogeneous echotexture. There are no demonstrated solid, cystic or complex lesions. LEFT LOBE: The left lobe of the thyroid gland is enlarged and measures 5.3 cm x 2.8 cm x 2.5 cm. There is a homogeneous echotexture. There is a 3.4 cm x 2.9 cm x 2.4 cm complex solid and cystic nodule in the lower pole. This corresponds to the CT finding. A biopsy is suggested. ISTHMUS: The isthmus measures 3 mm. The regional lymph nodes are normal. US/Thyroid IMPRESSION: Enlarged left lobe of the thyroid with a 3.4 cm x 2.9 cm x 2.4 cm complex solid and cystic nodule in the lower pole. Biopsy is recommended. Electronically Signed: Shay Montez MD at 20:31 EDT , Service support ,
== END ==
PROVIDERS: PCP Family Medicine; Referring Provider Family Medicine; Visit Provider Family Medicine
DX: E04.1 Nontoxic single thyroid nodule (principal)
CPT/HCPCS: 76536

== ENCOUNTER → 2020-12-15 15:32 | Outpatient (CLI) | payer MEDICARE, MEDICAID, SELFPAY ==
--- NOTE | 2020-12-15 | FLU_PTH ---
PATIENT: JOSE FONTANEZ LOC: [facility] U#:[id number] AGE/SX: 79/F ROOM: RE12/15/[address]: Dr. He Moran MD : 1945 BED: DIS: SPEC #: [id number] RECD: 12/15/20 15:28 STATUS: ALIREZA PARSON #: [id number] JASON: 12/15/20 00:[address]: He Moran DEPT: CYTOLOGY RECD BY: Juan Palacios ENTERED: 12/16/20 08:15 SP TYPE: Fluid OTHR DR: Dr. Liza Rose MD Tissues: A - Thyroid gland, NOS B - Thyroid gland, NOS Procedures: Special Stain Group II Surgery Specimen Level IV Cytospin Fluid HEADER OPERATION: Left thyroid fine needle aspiration PRE-OP DIAGNOSIS: Left thyroid nodule TISSUE SUBMITTED: A ? Left thyroid fluid for cytology, B ? Left thyroid FNA slides x8 DIAGNOSIS CYTOLOGY A. Left thyroid nodule fluid for cytology (cytospin and cell block): Bloody specimen. See comment. B. Left thyroid nodule, FNA (smears): A few clusters of benign follicular cells and macrophages are noted. The specimen is limited in evaluation due to lack of adequate number of follicular cells. See comment. SJ:bharat 12/17/2020 COMMENT A. Follicular cells are not seen. B. The findings are suggestive of benign colloid nodule with cystic changes. Correlation with clinical, radiologic findings and appropriate follow up are necessary. Case has been reviewed in consultation with Dr. Mast who concurs with the above diagnosis. IDC:AM CYTOLOGY STUDY Slides are reviewed. CYTOLOGY GROSS A - Received is 4 ml of red cloudy fluid labeled with the patient's name and and designated per the requisition as left thyroid. Submitted for cytology preparation including cell block. B - Received are eight smears labeled with the patient's name and designated per the requisition as left thyroid. Submitted for staining. / bharat 12/16/2020 TC:5 CPT: 44507, 34737, 13454
[2020-12-15 07:24] VITALS: BMI 33.8
== END ==
PROVIDERS: PCP Family Medicine; Referring Provider Surgery; Visit Provider Surgery
DX: E04.1 Nontoxic single thyroid nodule (principal)
CPT/HCPCS: 88108; 88305; 88313

== ENCOUNTER → 2020-12-21 09:48 | Outpatient (CLI) | payer MEDICARE, MEDICAID, SELFPAY ==
[2020-12-15 07:24] VITALS: BMI 33.8
[2020-12-21 11:39] LABS: T4 Free Direct 1.04 ng/dL (0.76-1.46); Thyroid Stim Hormone (TSH) 1.44 uIU/mL (0.358-3.74)
== END ==
PROVIDERS: PCP Family Medicine; Visit Provider Surgery
DX: E04.1 Nontoxic single thyroid nodule (principal)
CPT/HCPCS: 36415; 84439; 84443

== ENCOUNTER 2021-01-06 07:41 | Day surgery (SDC) | payer MEDICARE, MEDICAID, SELFPAY ==
[2020-12-15 07:24] VITALS: BMI 33.8
[2021-01-06] VITALS (7 sets, daily range): BP systolic 124–148; BP diastolic 71–91; PULSE 82–94; RESP 16–18; TEMP 21.1–36.4; O2SAT 93–99; BMI 32.1
[2021-01-06] MEDS: Lactated Ringers 1,000 ML 100 ML IV ×2 (08:15→10:00)
--- NOTE | 2021-01-06 09:45 | HP.PCM_ITS ---
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 Required: No Is patient in pain?: No Allergies alendronate sodium [From Fosamax] Allergy (Verified 12/15/20 08:23) Itching amoxicillin [From Augmentin] Adverse Reaction (Verified 12/15/20 08:23) Diarrhea cephalexin [From Keflex] Adverse Reaction (Verified 12/15/20 08:23) NEEDS FOLLOW-UP clavulanic acid [From Augmentin] Adverse Reaction (Verified 12/15/20 08:23) Diarrhea Medications cetirizine 10 mg PO DAILY 03/04/20 [History Confirmed 12/15/20] montelukast 10 mg PO DAILY 03/04/20 [History Confirmed 12/15/20] atorvastatin [Lipitor] 10 mg PO DAILY 11/25/20 [History Confirmed 12/15/20] multivitamin 1 tab PO DAILY 11/25/20 [History Confirmed 12/15/20] citalopram 10 mg tablet mg PO 12/15/20 [History Confirmed 12/15/20] omeprazole 20 mg capsule,delayed release 20 mg PO DAILY 12/15/20 [History Confirmed 12/15/20] Is last menstrual period known: No Post menopausal: Yes Patient : No PFSH Medical History (Updated 12/15/20 @ 10:[address] He Moran MD) Depression Environmental allergies GERD (gastroesophageal reflux disease) Hyperlipidemia Hypoglycemia Osteoarthritis Surgical History History of cholecystectomy History of colonoscopy History of hysterectomy History of lumpectomy of both breasts History of tonsillectomy and adenoidectomy Family History (Updated 12/15/20 @ 08:23 by Roxann Greco) Father Heart disease Emphysema lung Sister Breast cancer Cancer lung w/ mets Sister Breast cancer Mother Colon cancer Social History Smoking Status: Former smoker HPI HPI HPI: JOSE BROOKS, is a 75 F who presents to the office today for new thyroid nodule/cyst. They are referred for surgical consultation from Dr. Rose. This was discovered during work-up for patient's complaint of a sore throat. This complaint is persisted for the last couple of weeks. Then on 11/25/2020, Ms. Brooks noticed that her throat felt like it was closing up. However, she adds that there was a laterality associated with this sensation and felt that the compression was coming more from her left side. CT imaging was obtained of the neck and demonstrated a left-sided thyroid nodule. This was followed with an evaluation by ENT with laryngoscopy. No pharyngeal or laryngeal abnormalities were noted to explain the patient's sore throat sensation. A reflex ultrasound of the thyroid was obtained on 12/07/2020. This confirmed the presence of a 3.4 cm x 2.9 cm x 2.4 cm cystic lesion of the left thyroid lobe occasioning this referral. Additionally, Mrs. Brooks remarks that she has been self?medicating with omeprazole as she was concerned acid reflux may be to blame for her sore throat sensation and she has noticed improvement in her symptoms. From an endocrine perspective, they do not have a history of weight gain (10 pounds over an undetermined time but she acknowledges her activity level is decreased due to arthritic pains). There is history of recent fatigue. They do have a history of heat intolerance but with further questioning this is more consistent with flushing related to hypoglycemic episodes and resolves with a meal. They do not experience difficulty with swallowing. They do not complain of a new cough. They do not appreciate new voice changes. They do not have a family history of thyroid disorders or endocrinopathies. History of prior radiation exposure unknown. Patient's last thyroid function studies included a TSH of 1.41 from 03/10/2016. Lastly during routine questioning/screening with review of systems, it was uncovered that patient is overdue for screening colonoscopy. She states her last scope was 10 to 12 years ago. There were no significant findings and a 10-year follow-up was recommended. She describes her bowel movements as occurring 3-4 times daily and are soft in consistency. She denies noting any blood with these stools. She does not regularly take fiber. She has no personal history of diverticulitis. ROS General General: Yes weight change and fatigue; No appetite, colon cancer, breast cancer or weakness HEENT HEENT: No difficulty swallowing, eye injury, eye surgery, swollen glands or hoarseness Endo Endocrine: No thyroid disease, diabetes mellitus, thyroid cancer, Hair loss, heat intolerance or cold intolerance Musc Musculoskeletal: Yes arthritis; No back problems, rheumatoid arthritis, gout or joint pain Cardio Cardiovascular: No murmur, pacemaker, heart disease, atrial fibrillation, high blood pressure, heart attack, heart stent, palpitations, shortness of breat with exertion or chest pain Psych Psychiatric: Yes depression; No anxiety or hearing voices Resp Respiratory: No shortness of breath, No sleep apnea, No cough, No COPD, No asthma, No emphysema and No wheezing Gastro Gastrointestinal: No abdominal pain, No nausea or vomiting, No diarrhea, No constipation, No blood in stool, Yes acid reflux, No hemorrhoids, No ulcers, No gallbladder problem and No black,tarry stools Jose Hematologic: No blood thinners, No blood disorders, No bleeding, No anemia and No blood clots Neuro Neurologic: No weakness Exam Const General: cooperative and no acute distress Orientation: alert and oriented x3 Neck Neck: normal visual inspection, full ROM and no lymphadenopathy Thyroid: asymmetrical (Left-sided nodule palpated just superior to the left clavicle with swallow) Carotids: no bruits Resp Effort & Inspection: normal respiratory effort and able to speak in complete sentences Auscultation: clear to auscultation bilaterally, no rales, no rhonchi and no wheezes Cardio Rate: regular rate Rhythm: regular rhythm Heart Sounds: S1 normal and S2 normal Office Procedures Fine Needle Aspiration Provider Documentation Details: Indication: Left thyroid nodule (heterogeneous but primarily cystic) After obtaining patient consent and conducting a timeout amongst those present, the procedure was commenced by locating the suspicious nodule in the inferior pole of the left thyroid lobe using ultrasound. Superficially, the skin was cleaned with an alcohol swab and a wheal of local anesthetic was created after instilling 4ml 1% lidocaine. Then, under ultrasound guidance, multiple passes were made into the solid portion of the thyroid nodule using a 25-gauge needle. Once an adequate specimen was detected within the hub of the needle and bottom of the syringe, this was handed off the field. A second pass was made in a similar manner using a 22-gauge needle. This specimen, also, was passed off the field for cytopathologic evaluation. A third pass was using another 22-gauge needle to aspirate the cystic portion of the lesion. A total of 3 mL of serous aspirate were obtained. External pressure was applied to the neck to assist with hemostasis. Then the surface of the neck was cleaned, dried, and a bandage was applied. Patient was gradually returned to the sitting position and after short period of monitoring was dismissed. Wound care instructions and expectations regarding pathologic processing were discussed prior to dismissal. Complications: None Estimated blood loss: <1 ml Alert Ayala Alert Billing: Yes FNA [id number] Thyroid Assessment and Plan Assessment and Plan (1) Left thyroid nodule: Status: Acute Comment: Sonographic appearance consistent with a TI-RADS 3 and is predominantly cystic. Low suspicion for malignancy. However, the larger size of this lesion could arias ve contributed to patient's globus sensation. Patient should note symptomatic improvement following aspiration procedure during clinic visit today. However, patient is advised that recurrence is fairly common. Should this be the case for Ms. Brooks, she may require left thyroid lobectomy. Additionally, I would like to obtain thyroid function studies. Orders: Orders: T4 Free Direct Today Thyroid Stim Hormone (TSH) Today Plan - Dr. He Moran MD: ?We will follow up 2 days FNA procedure with patient regarding cytopathologic results ?Patient to obtain thyroid function studies, ordered (2) GERD (gastroesophageal reflux disease): Status: Suspected Comment: Patient's pharyngitis symptomatically improved following empiric treatment with omeprazole. Patient has more remote history of gastroesophageal reflux disease. She denies any prior history of upper endoscopy. I find it reasonable to perform simultaneous upper endoscopy with the lower endoscopy as indicated below. Plan - Dr. He Moran MD: ?EGD with colonoscopy ?Continue omeprazole ?Patient to be careful to avoid later mealtimes and advised to eat at least 2 hours prior to lying flat. (3) Family history of colon cancer requiring screening colonoscopy: Status: Acute Comment: Patient overdue for screening colonoscopy. This was due 2020 per her recollection. Patient does have a family history of colon cancer, albeit in an elderly mother who was diagnosed in her early 80s. No current/concerning symptoms Plan - Dr. He Moran MD: ?EGD with colonoscopy. I have discussed the above with the patient. I have offered the patient colonoscopy for evaluation. I have explained the risks/benefits of the procedure and described the procedure. - the patient understands and agrees to proceed. I have answered all the patient's questions to the patient's satisfaction and the patient has no further questions. The patient has been given instructions for the colon cleansing preparation. Plan Details Other Orders: Orders: Colonoscopy Today EGD Today Coding Level of Care Code Off vis,new,level 4 Diagnoses Left thyroid nodule E04.1 GERD (gastroesophageal reflux disease) K21.9 Family history of colon cancer requiring screening colonoscopy Z80.0 CPT Codes FNA - Fine Needle Aspiration: 72367 Thyroid (08128) I have examined the patient the following changes are noted: Patient doing well from a swallowing standpoint and no further recurrence of globus sensation related to her thyroid. She reports that she completed her prep for this endoscopy with little difficulty. She is now experiencing clear output with her bowel movements. Unfortunately we were denied coverage for her planned upper endoscopy procedures so we will proceed with colonoscopy only this morning.
--- NOTE | 2021-01-06 10:56 | OP.COLON_ITS ---
Patient Name: Deepa Brooks Procedure Date: 01/06/2021 9:50 AM Date of : 1945 Age: 75 Procedure: Colonoscopy Indications: Screening for colorectal malignant neoplasm Providers: He Moran MD Referring MD: Liza Rose Medicines: See the Anesthesia note for documentation of the administered medications Patient Profile: Last Colonoscopy: 10 years ago. Complications: No immediate complications. Procedure: Pre-Anesthesia Assessment: - The heart rate, respiratory rate, oxygen saturations, blood pressure, adequacy of pulmonary ventilation, and response to care were monitored throughout the procedure. - The anesthesia plan was to use monitored anesthesia care (MAC). After I obtained informed consent, the scope was passed under direct vision. Throughout the procedure, the patient's blood pressure, pulse, and oxygen saturations were monitored continuously. The colonoscope was introduced through the anus and advanced to the cecum, identified by the ileocecal valve. The colonoscopy was performed without difficulty. The patient tolerated the procedure well. The quality of the bowel preparation was adequate to identify polyps. The ileocecal valve was photographed. Scope In: 10:05:10 AM Scope Withdrawal Time 0 hours 18 minutes 38 seconds Scope Out: 10:44:21 AM Total Procedure Duration Time 0 hours 39 minutes 11 seconds Findings: Many large-mouthed diverticula were found in the sigmoid colon. There was no evidence of diverticular bleeding. No biopsies or other specimens were collected for this exam. Non-bleeding internal hemorrhoids were found during retroflexion. The hemorrhoids were Grade I (internal hemorrhoids that do not prolapse). Impression: - Moderate diverticulosis in the sigmoid colon. There was no evidence of diverticular bleeding. No specimens collected. - Non-bleeding internal hemorrhoids. Recommendation: - Discharge patient to home (ambulatory). - Resume regular diet today. - Await pathology results. - Repeat colonoscopy in 10 years for surveillance. - Continue present medications. Procedure Code(s): --- Professional --- G0121, Colorectal cancer screening; colonoscopy on individual not meeting criteria for high risk CPT copyright 2017 [employer]. All rights reserved. The codes documented in this report are preliminary and upon child care provider review may be revised to meet current compliance requirements. He Moran MD 01/06/2021 10:55:26 AM This report has been signed electronically. Number of Addenda: 0 Note Initiated On: 01/06/2021 9:50 AM
--- NOTE | 2021-01-06 10:57 | OP.CCLET_ITS ---
01/06/2021 Liza Rose [address] [place] [address] Re : Colonoscopy procedure for Deepa Hernandezatt Dear Dr. Rose This procedure was performed on December. My impressions and recommendations are as follows: Impressions : - Moderate diverticulosis in the sigmoid colon. There was no evidence of diverticular bleeding. No specimens collected. - Non-bleeding internal hemorrhoids. Recommendations : - Discharge patient to home (ambulatory). - Resume regular diet today. - Await pathology results. - Repeat colonoscopy in 10 years for surveillance. - Continue present medications. My findings are described in the full procedure note, which is enclosed. If I can be of further assistance, please feel free to contact me at Doctor phone number(s): , Work: . Sincerely, He Moran MD 01/06/2021 10:55:26 AM This report has been signed electronically.
== END 2021-01-06 11:48 ==
LOC: EN 07:44 → AC 07:46
PROVIDERS: PCP Family Medicine; Referring Provider Family Medicine; Visit Provider Surgery
PROC: 0DJD8ZZ Inspection of Lower Intestinal Tract, Via Natural or Artificial Opening Endoscopic (ICD-10-PCS; CPT 45378; principal; 2021-01-06 08:55)
DX: Z12.11 Encounter for screening for malignant neoplasm of colon (principal); K57.30 Diverticulosis of large intestine without perforation or abscess without bleeding; K64.0 First degree hemorrhoids; E04.1 Nontoxic single thyroid nodule; E78.00 Pure hypercholesterolemia, unspecified; K21.9 Gastro-esophageal reflux disease without esophagitis; F32.9 Major depressive disorder, single episode, unspecified; Z80.0 Family history of malignant neoplasm of digestive organs; Z87.891 Personal history of nicotine dependence; Z79.899 Other long term (current) drug therapy
CPT/HCPCS: G0121; J7120; J2405

== ENCOUNTER 2021-02-03 07:48 | Day surgery (SDC) | payer MEDICARE, MEDICAID, SELFPAY ==
[2021-02-03] VITALS (7 sets, daily range): BP systolic 124–138; BP diastolic 74–84; PULSE 80–89; RESP 16–29; TEMP 36.2–36.9; O2SAT 98–100; BMI 33.3
[2021-02-03] MEDS: Lactated Ringers 1,000 ML 100 ML IV ×2 (08:23→10:15)
--- NOTE | 2021-02-03 09:00 | IMM_PTH ---
PATIENT: JOSE FONTANEZ LOC: EN U#:[id number] AGE/SX: 75/F ROOM: RE02/03/[address]: Dr. He Moran MD : 1945 BED: DIS: 02/03/2021 SPEC #: [id number] RECD: 02/03/21 12:05 STATUS: ALIREZA RESamira #: [id number] JASON: 02/03/21 09:[address]: He Moran DEPT: IMMUNOHISTOCHEMISTRY RECD BY: Kathy Velasco ENTERED: 02/03/21 12:07 SP TYPE: IMMUNO OTHR DR: Dr. Liza Rose MD Tissues: A - Stomach, NOS C - Gastric mucous membrane Procedures: H Pylori (initial) P53 (initial) KI-67 (add) PHYSICIAN & INSTITUTION [place] [id number] SPECIMEN INFORMATION: Tissue Source: A - Antrum biopsy, C - GE junction biopsy Clinical Info: GERD Specimen Number: [id number] A & C CPT code: 22311 x2, 29645 METHODOLOGY: Deparaffinized sections of prefer/formalin-fixed tissue or PAP/DQ stained slides are incubated with monoclonal/polyclonal antibodies/oligonucleotide probes. Localization is made via biotin free immunoperoxidase method. Appropriate controls are performed and reacted as expected. Results on target cell population are indicated in the following table: RESULTS: ANTIBODY / CLONE RESULT Block A H Pylori (polyclonal) negative Block C P53 (DO-7) negative Ki-67 (30-9) negative These tests were developed and their performance characteristics determined by [facility]. They may not have been cleared or approved by the U.S. Food and Drug Administration. The FDA has determined that such clearance or approval is not necessary. The above immunohistochemical/dualISH markers are ordered and reviewed by the pathologist. INTERPRETATION: A. Antrum biopsy: Negative for Helicobacter pylori organisms. C. Gastroesophageal junction, biopsy: No evidence of dysplasia. AM:bharat 02/08/2021
--- NOTE | 2021-02-03 09:00 | EGD_PTH ---
PATIENT: JOSE FONTANEZ LOC: EN U#:[id number] AGE/SX: 75/F ROOM: RE02/03/[address]: Dr. He Moran MD : 1945 BED: DIS: 02/03/2021 SPEC #: [id number] RECD: 02/03/21 11:08 STATUS: ALIREZA EB #: [id number] JASON: 02/03/21 09:[address]: He Moran DEPT: SURGICAL PATHOLOGY RECD BY: Mahin Hirsch ENTERED: 02/03/21 11:37 SP TYPE: EGD BIOPSY OT DR: Dr. Liza Rose MD Tissues: A - Gastric mucous membrane B - Gastric mucous membrane C - Gastric mucous membrane Procedures: Special Stain Group II Surgery Specimen Level IV Alcian Blue/PAS (control) HEADER OPERATION: EGD ([facility] [place]) PRE-OP DIAGNOSIS: GERD TISSUE SUBMITTED: A ? Biopsy antrum for H. pylori and path, B ? Gastric polyp, C ? Biopsy of GE junction MICROSCOPIC DIAGNOSIS A. Gastric antrum, biopsy: Chronic gastritis. See comment. B. Gastric polyp, biopsy: Fragments of fundic gland polyp. C. Gastroesophageal junction, biopsy: Focal goblet cell metaplasia. Chronic inflammation. No evidence of dysplasia. Focal changes of reflux. See comment. AM:bharat 02/04/2021 COMMENT A. The results of immunohistochemistry for Helicobacter pylori will be reported separately ([id number]). C. Alcian blue/PAS stain with matched control supports the above diagnosis. Immunohistochemistry ([id number]) supports the above diagnosis. MICROSCOPIC DESCRIPTION Slides are reviewed. GROSS DESCRIPTION A - Received in fixative is one container labeled with the patient's name and designated antrum biopsy. The specimen consists of multiple irregular fragments of light an soft tissue that in aggregate measure 1 x 0.2 x 0.1 cm. The specimen is totally submitted in one cassette. B - Received in fixative is one container labeled with the patient's name and designated gastric polyp. The specimen consists of multiple irregular fragments of light an soft tissue that in aggregate measure 1 x 0.5 x 0.3 cm. The specimen is totally submitted in one cassette. C - Received in fixative is one container labeled with the patient's name and designated biopsy GE junction. The specimen consists of two irregular fragments of light an soft tissue that in aggregate measure 0.5 x 0.3 x 0.1 cm. The specimen is totally submitted in one cassette. / SJ:rg 02/03/21 TC:3 CPT: 29903 x3, 64984
--- NOTE | 2021-02-03 09:46 | HP.PCM_ITS ---
History and Physical Date of Admission: 02/03/21 Date of Service: 12/15/20 MR#:[id number]: JOSE BROOKSRep #:[id number] Provider:Cinda Ku/Sex: 75/F [facility] Vital Signs 12/15/20 07:24 Height 5 ft 2 in Weight: 185 lb 4 oz BMI 33.8 BP 115/79 Blood Pressure Location Rt brachial Position Sitting Respiration 18 Pulse 85 Pulse Source NIBP Temp 98.2 F Temp Source Temporal Pulse Oximetry (%) 96 Oxygen Delivery Method room air Intake Visit Reasons: CYST THYROID Chief Complaint: abn thyroid US Client Insights Consultant Required: No Is patient in pain?: No Allergies alendronate sodium [From Fosamax] Allergy (Verified 12/15/20 08:23) Itching amoxicillin [From Augmentin] Adverse Reaction (Verified 12/15/20 08:23) Diarrhea cephalexin [From Keflex] Adverse Reaction (Verified 12/15/20 08:23) NEEDS FOLLOW-UP clavulanic acid [From Augmentin] Adverse Reaction (Verified 12/15/20 08:23) Diarrhea Medications cetirizine 10 mg PO DAILY 03/04/20 [History Confirmed 12/15/20] montelukast 10 mg PO DAILY 03/04/20 [History Confirmed 12/15/20] atorvastatin [Lipitor] 10 mg PO DAILY 11/25/20 [History Confirmed 12/15/20] multivitamin 1 tab PO DAILY 11/25/20 [History Confirmed 12/15/20] citalopram 10 mg tablet mg PO 12/15/20 [History Confirmed 12/15/20] omeprazole 20 mg capsule,delayed release 20 mg PO DAILY 12/15/20 [History Confirmed 12/15/20] Is last menstrual period known: No Post menopausal: Yes Patient : No PFSH Medical History (Updated 12/15/20 @ 10:[address] He Moran MD) Depression Environmental allergies GERD (gastroesophageal reflux disease) Hyperlipidemia Hypoglycemia Osteoarthritis Surgical History History of cholecystectomy History of colonoscopy History of hysterectomy History of lumpectomy of both breasts History of tonsillectomy and adenoidectomy Family History (Updated 12/15/20 @ 08:23 by Roxann Greco) Father Heart disease Emphysema lung Sister Breast cancer Cancer lung w/ mets Sister Breast cancer Mother Colon cancer Social History Smoking Status: Former smoker HPI HPI HPI: JOSE BROOKS, is a 75 F who presents to the office today for new thyroid nodule/cyst. They are referred for surgical consultation from Dr. Rose. This was discovered during work-up for patient's complaint of a sore throat. This complaint is persisted for the last couple of weeks. Then on 11/25/2020, Ms. Brooks noticed that her throat felt like it was closing up. However, she adds that there was a laterality associated with this sensation and felt that the compression was coming more from her left side. CT imaging was obtained of the neck and demonstrated a left-sided thyroid nodule. This was followed with an evaluation by ENT with laryngoscopy. No pharyngeal or laryngeal abnormalities were noted to explain the patient's sore throat sensation. A reflex ultrasound of the thyroid was obtained on 12/07/2020. This confirmed the presence of a 3.4 cm x 2.9 cm x 2.4 cm cystic lesion of the left thyroid lobe oc casioning this referral. Additionally, Mrs. Brooks remarks that she has been self?medicating with omeprazole as she was concerned acid reflux may be to blame for her sore throat sensation and she has noticed improvement in her symptoms. From an endocrine perspective, they do not have a history of weight gain (10 pounds over an undetermined time but she acknowledges her activity level is decreased due to arthritic pains). There is history of recent fatigue. They do have a history of heat intolerance but with further questioning this is more consistent with flushing related to hypoglycemic episodes and resolves with a meal. They do not experience difficulty with swallowing. They do not complain of a new cough. They do not appreciate new voice changes. They do not have a family history of thyroid disorders or endocrinopathies. History of prior radiation exposure unknown. Patient's last thyroid function studies included a TSH of 1.41 from 03/10/2016. Lastly during routine questioning/screening with review of systems, it was uncovered that patient is overdue for screening colonoscopy. She states her last scope was 10 to 12 years ago. There were no significant findings and a 10-year follow-up was recommended. She describes her bowel movements as occurring 3-4 times daily and are soft in consistency. She denies noting any blood with these stools. She does not regularly take fiber. She has no personal history of diverticulitis. ROS General General: Yes weight change and fatigue; No appetite, colon cancer, breast cancer or weakness HEENT HEENT: No difficulty swallowing, eye injury, eye surgery, swollen glands or hoarseness Endo Endocrine: No thyroid disease, diabetes mellitus, thyroid cancer, Hair loss, heat intolerance or cold intolerance Musc Musculoskeletal: Yes arthritis; No back problems, rheumatoid arthritis, gout or joint pain Cardio Cardiovascular: No murmur, pacemaker, heart disease, atrial fibrillation, high blood pressure, heart attack, heart stent, palpitations, shortness of breat with exertion or chest pain Psych Psychiatric: Yes depression; No anxiety or hearing voices Resp Respiratory: No shortness of breath, No sleep apnea, No cough, No COPD, No asthma, No emphysema and No wheezing Gastro Gastrointestinal: No abdominal pain, No nausea or vomiting, No diarrhea, No constipation, No blood in stool, Yes acid reflux, No hemorrhoids, No ulcers, No gallbladder problem and No black,tarry stools Jose Hematologic: No blood thinners, No blood disorders, No bleeding, No anemia and No blood clots Neuro Neurologic: No weakness Exam Const General: cooperative and no acute distress Orientation: alert and oriented x3 Neck Neck: normal visual inspection, full ROM and no lymphadenopathy Thyroid: asymmetrical (Left-sided nodule palpated just superior to the left clavicle with swallow) Carotids: no bruits Resp Effort & Inspection: normal respiratory effort and able to speak in complete sentences Auscultation: clear to auscultation bilaterally, no rales, no rhonchi and no wheezes Cardio Rate: regular rate Rhythm: regular rhythm Heart Sounds: S1 normal and S2 normal Office Procedures Fine Needle Aspiration Provider Documentation Details: Indication: Left thyroid nodule (heterogeneous but primarily cystic) After obtaining patient consent and conducting a timeout amongst those present, the procedure was commenced by locating the suspicious nodule in the inferior pole of the left thyroid lobe using ultrasound. Superficially, the skin was cleaned with an alcohol swab and a wheal of local anesthetic was created after instilling 4ml 1% lidocaine. Then, under ultrasound guidance, multiple passes were made into the solid portion of the thyroid nodule using a 25-gauge needle. Once an adequate specimen was detected within the hub of the needle and bottom of the syringe, this was handed off the field. A second pass was made in a similar manner using a 22-gauge needle. This specimen, also, was passed off the field for cytopathologic evaluation. A third pass was using another 22-gauge needle to aspirate the cystic portion of the lesion. A total of 3 mL of serous aspirate were obtained. External pressure was applied to the neck to assist with hemostasis. Then the surface of the neck was cleaned, dried, and a bandage was applied. Patient was gradually returned to the sitting position and after short period of monitoring was dismissed. Wound care instructions and expectations regarding pathologic processing were discussed prior to dismissal. Complications: None Estimated blood loss: <1 ml Alert Groover And Striper Operator Alert Billing: Yes FNA [id number] Thyroid Assessment and Plan Assessment and Plan (1) Left thyroid nodule: Status: Acute Comment: Sonographic appearance consistent with a TI-RADS 3 and is predominantly cystic. Low suspicion for malignancy. However, the larger size of this lesion could have contributed to patient's globus sensation. Patient should note symptomatic improvement following aspiration procedure during clinic visit today. However, patient is advised that recurrence is fairly common. Should this be the case for Ms. Brooks, she may require left thyroid lobectomy. Additionally, I would like to obtain thyroid function studies. Orders: Orders: T4 Free Direct Today Thyroid Stim Hormone (TSH) Today Plan - Dr. He Moran MD: ?We will follow up 2 days FNA procedure with patient regarding cytopathologic results ?Patient to obtain thyroid function studies, ordered (2) GERD (gastroesophageal reflux disease): Status: Suspected Comment: Patient's pharyngitis symptomatically improved following empiric treatment with omeprazole. Patient has more remote history of gastroesophageal reflux disease. She denies any prior history of upper endoscopy. I find it reasonable to perform simultaneous upper endoscopy with the lower endoscopy as indicated below. Plan - Dr. He Moran MD: ?EGD with colonoscopy ?Continue omeprazole ?Patient to be careful to avoid later mealtimes and advised to eat at least 2 hours prior to lying flat. (3) Family history of colon cancer requiring screening colonoscopy: Status: Acute Comment: Patient overdue for screening colonoscopy. This was due 2020 per her recollection. Patient does have a family history of colon cancer, albeit in an elderly mother who was diagnosed in her early 80s. No current/concerning symptoms Plan - Dr. He Moran MD: ?EGD with colonoscopy. I have discussed the above with the patient. I have offered the patient colonoscopy for evaluation. I have explained the risks/benefits of the procedure and described the procedure. - the patient understands and agrees to proceed. I have answered all the patient's questions to the patient's satisfaction and the patient has no further questions. The patient has been given instructions for the colon cleansing preparation. Plan Details Other Orders: Orders: Colonoscopy Today EGD Today Insert H&P no changes. Patient was previously scheduled for both EGD and colonoscopy however, prior authorization did not come through in time so patient presents for EGD only today. She states that her symptoms discussed on initial evaluation (as recapitulated above) remain improved while taking omeprazole.
--- NOTE | 2021-02-03 10:31 | OP.EGD_ITS ---
Patient Name: Deepa Brooks Procedure Date: 02/03/2021 9:45 AM Date of : 1945 Age: 75 Procedure: Upper GI endoscopy Indications: Suspected gastro-esophageal reflux disease Providers: He Moran MD Medicines: See the Anesthesia note for documentation of the administered medications Patient Profile: Refer to note in patient chart for documentation of history and physical. Patient has symptoms of acute dyspepsia. Complications: No immediate complications. Estimated blood loss: Minimal. Procedure: Pre-Anesthesia Assessment: - The anesthesia plan was to use moderate sedation/analgesia (conscious sedation). - The heart rate, respiratory rate, oxygen saturations, blood pressure, adequacy of pulmonary ventilation, and response to care were monitored throughout the procedure. After obtaining informed consent, the endoscope was passed under direct vision. Throughout the procedure, the patient's blood pressure, pulse, and oxygen saturations were monitored continuously. The Endoscope was introduced through the mouth, and advanced to the second part of duodenum. The upper GI endoscopy was accomplished without difficulty. The patient tolerated the procedure well. Scope In: 9:52:28 AM Scope Out: 10:21:44 AM Total Procedure Duration Time 0 hours 29 minutes 16 seconds Findings: No gross lesions were noted in the first portion of the duodenum. No biopsies or other specimens were collected for this exam. No biopsies or other specimens were collected for this exam. No gross lesions were noted in the second portion of the duodenum. No biopsies or other specimens were collected for this exam. Scattered mild inflammation characterized by erythema was found on the greater curvature of the stomach. Biopsies were taken with a cold forceps for histology. Estimated blood loss was minimal. The gastroesophageal flap valve was visualized endoscopically and classified as Hill Grade I (prominent fold, tight to endoscope). No biopsies or other specimens were collected for this exam. Biopsies were taken with a cold forceps for histology. Multiple 5 mm pedunculated and sessile polyps with no bleeding and no stigmata of recent bleeding were found in the gastric body. The polyp was removed with a hot snare. Resection and retrieval were complete using a suction (via the working channel). Impression: - No gross lesions in the first portion of the duodenum. No specimens collected. - No gross lesions in the second portion of the duodenum. No specimens collected. - Acute gastritis. Biopsied. - Gastroesophageal flap valve classified as Hill Grade I (prominent fold, tight to endoscope). No specimens collected and Biopsied. - Multiple gastric polyps. Resected and retrieved. Recommendation: - Discharge patient to home (via wheelchair). - Resume regular diet today. - Continue present medications. - Await pathology results. Procedure Code(s): --- Professional --- 09865, Esophagogastroduodenoscopy, flexible, transoral; with removal of tumor(s), polyp(s), or other lesion(s) by snare technique Diagnosis Code(s): --- Professional --- K29.00, Acute gastritis without bleeding K31.7, Polyp of stomach and duodenum CPT copyright 2017 [employer]. All rights reserved. The codes documented in this report are preliminary and upon dough molder hand review may be revised to meet current compliance requirements. He Moran MD 02/03/2021 10:30:36 AM This report has been signed electronically. Number of Addenda: 0 Note Initiated On: 02/03/2021 9:45 AM
--- NOTE | 2021-02-03 10:31 | OP.CCLET_ITS ---
02/03/2021 Liza Rose [address] [place] [address] Re : Upper GI endoscopy procedure for Deepa Brooks Dear Dr. Rose This procedure was performed on January. My impressions and recommendations are as follows: Impressions : - No gross lesions in the first portion of the duodenum. No specimens collected. - No gross lesions in the second portion of the duodenum. No specimens collected. - Acute gastritis. Biopsied. - Gastroesophageal flap valve classified as Hill Grade I (prominent fold, tight to endoscope). No specimens collected and Biopsied. - Multiple gastric polyps. Resected and retrieved. Recommendations : - Discharge patient to home (via wheelchair). - Resume regular diet today. - Continue present medications. - Await pathology results. My findings are described in the full procedure note, which is enclosed. If I can be of further assistance, please feel free to contact me at Doctor phone number(s): , Work: . Sincerely, He Moran MD 02/03/2021 10:30:36 AM This report has been signed electronically.
== END 2021-02-03 11:14 ==
LOC: EN 07:49 → AC 07:50
PROVIDERS: PCP Family Medicine; Referring Provider Family Medicine; Visit Provider Surgery
PROC: 0DJ08ZZ Inspection of Upper Intestinal Tract, Via Natural or Artificial Opening Endoscopic (ICD-10-PCS; CPT 43235; principal; 2021-02-03 08:55)
DX: K31.7 Polyp of stomach and duodenum (principal); K29.50 Unspecified chronic gastritis without bleeding; K21.9 Gastro-esophageal reflux disease without esophagitis; E78.00 Pure hypercholesterolemia, unspecified; F32.9 Major depressive disorder, single episode, unspecified; E04.1 Nontoxic single thyroid nodule; Z87.891 Personal history of nicotine dependence; Z79.899 Other long term (current) drug therapy
CPT/HCPCS: 43239; 88305; 88313; 88341; 88342; J7120

== ENCOUNTER → 2021-03-22 07:33 | Outpatient (CLI) | payer MEDICARE, MEDICAID, SELFPAY ==
--- NOTE | 2021-03-22 07:35 | BI_ITS ---
MAMMOGRAPHY - BILATERAL SCREENING REASON FOR EXAM: Female, 75 years old. Routine annual screening examination. PERTINENT HISTORY: Sisters with breast cancer. TECHNIQUE: Digital bilateral breast nallely (3D mammographic acquisition) in the CC and MLO projections. 2-D mediolateral oblique (MLO) and craniocaudad (CC) views of both breasts were obtained. CAD: Full Field Digital Mammography with Computer Added Detection was performed. COMPARISON: Comparison is made with prior study dated 04/04/2019 and 05/08/2018. FINDINGS: Breast Composition: The breasts are extremely dense, which lowers the sensitivity of mammography. There are no dominant masses or suspicious calcifications. 2 tissue markers are once again seen in the retrocrural region of the right breast. No other significant abnormalities are identified. There has been no significant change since the prior study. BI/SCRN MAMM (CAD)W/NALLELY BILAT IMPRESSION: Stable bilateral screening mammogram. Yearly follow-up mammogram recommended. (A) ASSESSMENT CATEGORY: BIRADS Category 2: Benign. A letter regarding these results will be sent to the patient by the facility within 30 days. Approximately 10% of breast cancers are not detected by mammography. A normal mammogram should not delay biopsy of a clinically suspicious abnormality. [id number] Electronically Signed: Shay Montez MD at 9:31 EST , Service support ,
== END ==
PROVIDERS: PCP Family Medicine; Referring Provider Family Medicine; Visit Provider Family Medicine
DX: Z12.31 Encounter for screening mammogram for malignant neoplasm of breast (principal)
CPT/HCPCS: 77063; 77067

== ENCOUNTER 2021-08-21 15:37 | Emergency (ER) | payer MEDICARE, MEDICAID, SELFPAY ==
[2021-08-21 15:39] VITALS: BP 151/90; PULSE 91; RESP 22; TEMP 36.2; O2SAT 95; BMI 36.6
--- NOTE | 2021-08-21 15:50 | ED.VIS.FALL ---
HPI HPI - Fall History of Present Illness Chief Complaint: Fall Detail of Chief Complaint: Fall with injury to right shoulder and right ribs Informant: patient Narrative Narrative: Patient presents to the emergency department complaint of a fall that occurred 2 days ago. Patient states she was coming down the basement steps when she missed the last step and fell and turned into the wall. Patient denied striking her head or loss of consciousness. Initially did not think much of it and was little bit sore yesterday but felt pretty good. Today the pain has been more severe in her right armpit and right ribs. She denies headache or neck pain. She denies abdominal pain. She denies shortness of breath. She has been ambulatory. [facility] Medical History (Updated 08/21/21 @ 18:[address] Tomas Goldstein DO) Anxiety Arthritis Depression Environmental allergies GERD (gastroesophageal reflux disease) High cholesterol Hyperlipidemia Hypoglycemia Osteoarthritis Thyroid disease Wears dentures Wears glasses Home Medications cetirizine 10 mg PO DAILY 03/04/20 [History Last Taken 02/03/21] montelukast 10 mg PO DAILY 03/04/20 [History Last Taken 02/03/21] atorvastatin [Lipitor] 10 mg PO DAILY 11/25/20 [History Last Taken 02/03/21] multivitamin 1 tab PO DAILY 11/25/20 [History Last Taken 02/03/21] citalopram 10 mg tablet 10 mg PO DAILY 12/15/20 [History Last Taken 02/03/21] omeprazole 20 mg capsule,delayed release 20 mg PO DAILY 12/15/20 [History Last Taken 02/03/21] oxycodone-acetaminophen 1 tab PO Q6H PRN PRN 3 Days #12 tablet 08/21/21 [Rx Last Taken Unknown] Allergy/AdvReac Type Severity Reaction Status Date / Time alendronate sodium Allergy Itching Verified 08/21/21 15:38 [From Fosamax] amoxicillin [From Augmentin] AdvReac Diarrhea Verified 08/21/21 15:38 cephalexin [From Keflex] AdvReac NEEDS Verified 08/21/21 15:38 FOLLOW-UP clavulanic acid AdvReac Diarrhea Verified 08/21/21 15:38 [From Augmentin] Family History (Updated 12/15/20 @ 08:23 by Roxann Greco) Father Heart disease Emphysema lung Sister Breast cancer Cancer lung w/ mets Sister Breast cancer Mother Colon cancer Surgical History (Updated 02/01/21 @ 08:22 by Linda Pepper) History of cholecystectomy History of colonoscopy History of hysterectomy History of lumpectomy of both breasts History of tonsillectomy and adenoidectomy Hx of colonoscopy Social History Smoking Status: Former smoker ROS ROS ED Constitutional Constitutional ED: Reports systems reviewed and no addt'l complaints, except as documented; Denies body ache(s), change in weight or chills Eyes Eyes: Denies acute decrease in peripheral vision, change in vision, double vision or loss of vision ENT ENT ED: Reports none; Denies ear pain, lip swelling, loss taste/smell, neck pain, otalgia or sore throat Cardiovascular Cardiovascular: Reports none; Denies abdominal pain, chest pain with activity, leg edema, lightheadedness, palpitations, rapid heart rate or syncope Respiratory/Chest Respiratory/Chest: Reports none; Denies change in mental status, dry cough, dyspnea, hemoptysis, shortness of breath at rest or shortness of breath with exertion Gastrointestinal Gastrointestinal: Reports none; Denies abdominal pain, change in stool character, diarrhea, hematemesis, hematochezia, melena, rectal bleeding or vomiting Genitourinary Genitourinary ED: Reports none; Denies abdominal discomfort, anuria, dysuria, genital pain or polyuria Musculoskeletal Musculoskeletal: Reports none and other Details: Right shoulder pain and right rib pain ; Denies arthralgias, back pain, difficulty walking, extremity pain, muscle weakness or myalgias Integumentary Reports none; Denies abscess or rash Neurologic Neurologic: Reports none; Denies abnormal gait, confusion, focal weakness, frequent falls, headache(s), loss of vision, numbness, paresthesias, radicular pain, vertigo or weakness Psychiatric Psychiatric: Reports systems reviewed and no addt'l complaints, except as documented and none; Denies behavioral changes, confusion, difficulty concentrating, hallucinations, suicidal ideation, tactile hallucinations or visual hallucinations Endocrine Endocrinology: Denies none, cold intolerance, excessive sweating, fatigue or heat intolerance Hematologic/Lymphatic Hematologic/Lymphatic: Reports none; Denies anemia, easy bleeding or easy bruising Allergic/Immunologic Allergic/Immunologic ED: Denies as per HPI, none, lip swelling, mouth swelling, throat swelling, tongue swelling or hives EXAM Physical Exam Const Vital Signs: 08/21/21 15:39 08/21/21 16:00 08/21/21 17:38 Temperature 97.1 F L Temperature Source Temporal Pulse Rate 91 77 Respiratory Rate 22 H 18 Respiratory Effort Normal Respiratory Depth Normal Respiratory Pattern Normal Blood Pressure 151/90 H 152/84 H Blood Pressure Mean 110 106 Pulse Ox 95 97 Oxygen Delivery Method Room Air Room Air Room Air Positive well nourished and well developed General Appearance ED: well developed and NAD HEENT Reports TM's clear and moist mucous membranes normocephalic and atraumatic; Negative for trauma or tenderness Tympanic Membrane ED: Yes TM's clear Eyes PERRL and EOMs intact bilaterally General Eye ED: Negative for pale conjunctiva or scleral icterus Neck no lymphadenopathy, supple and no JVD General: Negative for tenderness Chest Wall palpation of chest normal Chest Narrative: Patient has tenderness palpation over the right posterior ribs as well as into the midaxillary line and anteriorly. No ecchymosis or bruising noted. No subcu emphysema noted. Chest: Negative for tenderness Resp normal respiratory effort and clear to auscultation bilaterally Effort and Inspection: Negative for respiratory distress or pain with movement Auscultation: Negative for rhonchi, wheezes or diminished lung sounds Cardio regular rate, regular rhythm, S1 normal heart sound, S2 normal heart sound and no murmurs Peripheral Pulses: pulses 2+ throughout GI normal to inspection, nondistended, normoactive bowel sounds, soft to palpation, non-tender, non-distended and no masses Back/Spine no CVA tenderness and no thoracic nor lumbar tenderness Extremity normal to inspection Extremity Narrative: Mild diffuse tenderness over the right scapula and glenohumeral joint. No obvious deformity. Neurovascular intact distally. General Extremety ED: Negative for edema General Extremity: Negative for edema Neuro oriented x3, CN's II-XII intact bilaterally, no sensory deficits noted and gait normal Sensorium / Orientation: awake, alert, oriented to person, oriented to place and oriented to time Motor Exam: strength 5/5 throughout and strength abnormal Psych mental status grossly normal Skin no rashes or lesions noted and no wounds MDM MDM MDM Narrative Medical decision making narrative: Patient was given a shot of Dilaudid 1 mg IM as well as Zofran 4 mg IM. She had good pain relief with that. While I was doing my exit interview patient started complaining of abdominal discomfort in the epigastric region that it just started and she had some belching. I did give her a GI cocktail and that resolved her symptoms. She is comfortable going home. Patient will be given a prescription for a few Percocet for pain should she need it. Patient to follow-up with her primary care physician 3 to 5 days. She is to return if condition should worsen anyway Radiography Diagnostic Testing: Clinical Impression(s) from Imaging Studies Ribs w/Chest X-Ray 08/21/21 16:08 IMPRESSION: RIBS: Normal x-ray examination of the ribs. CHEST: Normal x-ray examination of the chest. Electronically Signed: Elizabeth Alvarado MD at 18:08 EDT Reading Location ID and State: Kaleb Horton MD Tel , Service support , Shoulder X-Ray 08/21/21 16:08 IMPRESSION: Normal x-ray examination of the shoulder. Electronically Signed: Elizabeth Alvarado MD at 18:10 EDT Reading Location ID and State: [id number] / Tel , Service support , Three-view x-rays of right ribs and AP chest obtained interpreted by myself as no acute rib fractures and no evidence of pulmonary contusions or pneumothorax. Radiology in agreement. Patient also had 2 view x-rays of the right shoulder interpreted by myself as no acute fractures or dislocations and radiology again in agreement. Discharge Plan Triage Chief Complaint: Fall ED Provider: Tomas Goldstein Dx/Rx/DC Orders Clinical Impression: Contusion of right shoulder, Chest wall contusion Instructions: ED Chest Wall Contusion, ED Mechanical Fall, ED Shoulder Contusion Prescriptions: New oxycodone-acetaminophen [oxycodone-acetaminophen] 1 TABLET tablet 1 tab PO Q6H PRN PRN (Reason: Pain) 3 Days Qty: 12 RF: 0 No Action citalopram 10 mg tablet 10 mg PO DAILY RF: 0 omeprazole 20 mg capsule,delayed release(DR/EC) 20 mg PO DAILY RF: 0 montelukast 10 MG tablet 10 mg PO DAILY RF: 0 cetirizine 10 MG capsule 10 mg PO DAILY RF: 0 multivitamin Tablet 1 tab PO DAILY RF: 0 atorvastatin [Lipitor] 10 mg tablet 10 mg PO DAILY RF: 0 Primary Care Provider: Liza Rose Referrals: Liza Rose MD [Primary Care Provider] - 3-5 Days Disposition Disposition: Home, Self Care
--- NOTE | 2021-08-21 16:08 | RAD_ITS ---
STUDY: X-RAY - UNILATERAL RIBS ( RIGHT ) WITH CHEST REASON FOR EXAM: Female, 75 years old. fall TECHNIQUE - RIBS: 2 view(s) of the ribs. TECHNIQUE - CHEST: 1 COMPARISON: None. FINDINGS - RIBS: Normal visualized ribs without a demonstrated fracture. FINDINGS - CHEST: The lungs are clear and expanded. There is no demonstrated pleural abnormality. Normal size heart. Normal mediastinum and ama. Normal visualized pulmonary arteries. Normal visualized aortic arch and descending thoracic aorta. Normal visualized thoracic spine. Normal visualized ribs, clavicles, and shoulders. There is no demonstrated abnormality of the visualized soft tissue structures of the upper abdomen. RAD/Ribs Uni Min 3V w/PA Chest IMPRESSION: RIBS: Normal x-ray examination of the ribs. CHEST: Normal x-ray examination of the chest. Electronically Signed: Elizabeth Alvarado MD at 18:08 EDT Reading Location ID and State: [id number] / Tel , Service support ,
--- NOTE | 2021-08-21 16:08 | RAD_ITS ---
STUDY: X-RAY - RIGHT SHOULDER REASON FOR EXAM: Female, 75 years old. fall TECHNIQUE: 4 view(s) of the shoulder. COMPARISON: None. FINDINGS: Normal glenohumeral articulation. Normal acromioclavicular joint. Normal acromion. Normal humeral head and visualized proximal humerus. The soft tissue structures are unremarkable. Normal visualized pulmonary apex. RAD/Shoulder min 2 Views IMPRESSION: Normal x-ray examination of the shoulder. Electronically Signed: Elizabeth Alvarado MD at 18:10 EDT Reading Location ID and State: [id number] / Tel , Service support ,
[2021-08-21] MEDS: HYDROmorphone 1 MG/ML Syringe IM (17:04)
[2021-08-21] MEDS: Ondansetron 4 MG/2 ML Vial IM (17:04)
[2021-08-21 17:38] VITALS: BP 152/84; PULSE 77; RESP 18; O2SAT 97
[2021-08-21] MEDS: Mag Hydrox/Al Hydrox/Simeth 30 ML UDC PO (18:37)
[2021-08-21 19:07] VITALS: PULSE 91; RESP 15; O2SAT 99
== END 2021-08-21 19:09 | disposition home or self-care (01) ==
PROVIDERS: Emergency Provider Emergency Medicine; PCP Family Medicine; Visit Provider Emergency Medicine
DX: S40.011A Contusion of right shoulder, initial encounter (principal); S20.20XA Contusion of thorax, unspecified, initial encounter; W19.XXXA Unspecified fall, initial encounter; Z87.891 Personal history of nicotine dependence
CPT/HCPCS: 71101; 73030; 96372; 99283; J2405

== ENCOUNTER 2021-08-26 16:32 | Outpatient (CLI) | payer MEDICARE, MEDICAID, SELFPAY ==
[2021-08-26 17:46] LABS: Absolute Lymphocyte Count 1.94 X10^3/uL (0.83-4.51); Absolute Neutrophil Count 3.3 X10^3/uL (2.0-7.7); Basophil# 0.03 X10^3/uL; Basophil% 0.5 % (0-1); Eosinophil# 0.17 X10^3/uL; Eosinophils% 2.8 % (0-5); Hematocrit 42.1 % (37-47); Hemoglobin 14.2 g/dL (12.0-15.0); Lymphocyte # 1.94 X10^3/ul (0.83-4.51); Lymphocyte % 31.9 % (19-41); Mean Corp Hgb Conc 33.7 g/dL (32-36); Mean Corpuscular Hgb 30.5 pg (27.0-32.0); Mean Corpuscular Volume 90.3 fL (81-99); Mean Platelet Vol. 9.6 fl (6.2-12.0); Monocyte# 0.62 X10^3/uL; Monocyte% 10.2 % (0-10); NRBC Flagged by Analyzer 0 % (0-5); Neutrophil # 3.29 X10^3/uL (2.7-7.7); Neutrophil % 53.9 % (47-70); Platelet Count 234 K/mm3 (150-450); RBC Distribution Width CV 13.1 % (11.6-14.6); RBC Distribution Width SD 42.9 fl (35.1-43.9); Red Blood Count 4.66 M/mm3 (4.2-5.4); White Blood Count 6.1 K/mm3 (4.4-11.0)
[2021-08-26 18:25] LABS: Erythrocyte Sedimentation Rate 26 mm/hr (0-30)
== END 2021-08-26 23:59 | disposition home or self-care (01) ==
LOC: MFPLAB 16:37
PROVIDERS: PCP Family Medicine; Referring Provider Family Medicine; Visit Provider Family Medicine
DX: R53.81 Other malaise (principal); R53.83 Other fatigue
CPT/HCPCS: 36415; 85025; 85652

== ENCOUNTER → 2021-09-05 | Outpatient (CLI) | payer MEDICARE, MEDICAID, SELFPAY ==
[2021-09-05 15:25] LABS: AST(SGOT) 24 U/L (15-37); Alanine Aminotransfer ALT/SGPT 32 U/L (13-56); Anion Gap 7 (5-15); BUN 10 mg/dL (7-18); BUN/Creat Ratio 14.1 RATIO (10-20); Calcium,Total 9.3 mg/dL (8.5-10.1); Chloride 106 mmol/L (98-107); Cholesterol 160 mg/dL (200); Creatinine, Serum 0.71 mg/dL (0.55-1.02); EST Glomerular Filtration Rate 85 mL/min (>60); Est Glom Filt Rate - Afr Amer 103 mL/min (>60); Glucose 108 mg/dL (74-106); High Density Lipoprotein 64 mg/dL; Sodium Level 139 mmol/L (136-145); Triglycerides 114 mg/dL; Very Low Density Lipoprotein 23 mg/dL (5-40)
== END | disposition home or self-care (01) ==
LOC: MFPLAB 11:51
PROVIDERS: PCP Family Medicine; Visit Provider Family Medicine
DX: E78.5 Hyperlipidemia, unspecified (principal); R60.9 Edema, unspecified
CPT/HCPCS: 36415; 80048; 80061; 84450; 84460

== ENCOUNTER → 2021-10-19 | Outpatient (CLI) | payer MEDICARE, MEDICAID, SELFPAY ==
--- NOTE | 2021-10-19 09:26 | BD_ITS ---
STUDY: DUAL ENERGY X-RAY ABSORPTIOMETRY / DXA REASON FOR EXAM: Female, 76 years old. [id number]. Patient is postmenopausal. TECHNIQUE: Bone Mineral Density (BMD) measurements of lumbar spine and bilateral hips were obtained. COMPARISON: Comparison is made with prior study dated 05/08/2018. FINDINGS: Lumbar Spine (L1-L4): g/cm2 (0.757) / T-score (-2.6) / Z-score (-0.2) Findings are suggestive of osteoporosis with a high fracture risk. Left Femur Total: g/cm2 (0.650) / T-score (-2.4) / Z-score (-0.6) Left Femoral Neck: g/cm2 (0.555) / T-score (-2.7) / Z-score (-0.6) Right Femur Total: g/cm2 (0.654) / T-score (-2.4) / Z-score (-0.6) Right Femoral Neck: g/cm2 (0.6-0) / T-score (-2.1) / Z-score (0.0) The T-Scores on the most recent prior examination were: Lumbar Spine (L1-L4): There has been improvement of bone density since the previous examination. Left Femur Total: which represents a worsening of 0.9%. Right Femur Total: which represents a worsening of 1.3%. BD/Dexa Bone Density Study IMPRESSION: The patient is considered osteoporotic as outlined below according to World Perico Organization (WHO) criteria with a high fracture risk. There has been worsening of bone density since the previous examination. Reference Information: The T-score is the number of standard deviations above or below the standard which is normal for young adults at their peak bone mineral density. The World Health Organization (WHO) interprets the T-scores as follows: Above -1 Normal bone density Between -1 and -2.5 Osteopenia Equal to / or below -2.5 Osteoporosis As a practical clinical guideline, osteopenia may be graded as follows: Mild -1 through -1.5 Moderate -1.6 through -2.0 Severe -2.1 through -2.4 The Z-score is the number of standard deviations above or below age-matched controls. A Z-score of less than -1.5 would be considered abnormal. References: 1. NIH Osteoporosis and Related Bone Diseases www osteo.org 2. International Society for Clinical Densitometry www iscd.org 3. National Osteoporosis Foundation www nof.org Electronically Signed: Shay Montez MD at 16:25 EDT ,
== END | disposition home or self-care (01) ==
LOC: OPBD 09:18
PROVIDERS: PCP Family Medicine; Visit Provider Family Medicine
DX: M81.0 Age-related osteoporosis without current pathological fracture (principal)
CPT/HCPCS: 77080

== ENCOUNTER → 2021-12-07 | Outpatient (CLI) | payer MEDICARE, MEDICAID, SELFPAY | END | disposition home or self-care (01) | LOC: LABSPEC 15:04 | PROVIDERS: PCP Family Medicine; Visit Provider Family Medicine | DX: R35.0 Frequency of micturition (principal) | CPT/HCPCS: 87086 ==

== ENCOUNTER → 2021-12-17 | Outpatient (CLI) | payer MEDICARE, MEDICAID, SELFPAY ==
[2020-12-15 07:24] VITALS: BMI 33.8
--- NOTE | 2021-12-17 07:54 | US_ITS ---
EXAM: US SOFT TISSUES HEAD AND NECK, THYROID CLINICAL INDICATION: f/u L thyroid nodule TECHNIQUE: Greyscale and color doppler imaging was performed of the thyroid gland. This report was created using [employer] report generation technology. COMPARISON: US Thyroid dated december 07 2020 FINDINGS: LEFT THYROID LOBE: Left thyroid lobe measures 4.7 x 2.1 x 2.3 cm. Lower pole mass again noted measuring 2.9 cm in diameter This nodule is mixed cystic and solid, hyperechoic or isoechoic, [id number], smoothly marginated and contains no echogenic foci. This nodule is not suspicious and no FNA or follow-up is necessary. RIGHT THYROID LOBE: Right thyroid lobe measures 4.3 x 1.6 x 2.0 cm with somewhat heterogeneous echotexture. No right thyroid nodule. ISTHMUS: Normal. No thyroid nodules are present. US/Thyroid IMPRESSION: 1. No interval change. 2. Stable complex left thyroid lesion. Electronically Signed: Yasir Colon MD at 11:53 EDT ,
== END | disposition home or self-care (01) ==
LOC: US 07:52
PROVIDERS: PCP Family Medicine; Referring Provider Family Medicine; Visit Provider Family Medicine
DX: E04.1 Nontoxic single thyroid nodule (principal)
CPT/HCPCS: 76536

== ENCOUNTER → 2022-02-10 | Outpatient (CLI) | payer MEDICARE, MEDICAID, SELFPAY ==
--- NOTE | 2022-02-10 10:10 | RAD_ITS ---
INDICATION: FOOT PAIN EXAMINATION/TECHNIQUE: X-RAY - RIGHT XR Foot Min 3 Views 3 VIEWS COMPARISON: Contralateral left foot x-rays 09/15/2019. FINDINGS: SOFT TISSUES: No soft tissue swelling or gas. No radiopaque foreign body. BONES/JOINTS: No acute fracture or malalignment. There is bony bunion formation first metatarsal head. Minimal degenerative changes first metatarsal-phalangeal joint. No sclerotic or destructive changes observed. There is a spur involving the inferior calcaneus. Accessory peroneus ossicle noted. RAD/Foot min 3 Views IMPRESSION: Moderate bunion formation first metatarsal head and mild degenerative changes first metatarsal-phalangeal joint. Inferior calcaneal spurring. Electronically Signed: He Chase DO at 20:33 EDT ,
== END | disposition home or self-care (01) ==
LOC: MTRAD 10:03
PROVIDERS: PCP Family Medicine; Referring Provider Family Medicine; Visit Provider Family Medicine
DX: M79.671 Pain in right foot (principal)
CPT/HCPCS: 73630

== ENCOUNTER → 2022-04-19 | Outpatient (CLI) | payer MEDICARE, MEDICAID, SELFPAY ==
--- NOTE | 2022-04-19 08:06 | BI_ITS ---
MAMMOGRAPHY - BILATERAL SCREENING REASON FOR EXAM: Female, 76 years old. Routine annual screening examination. PERTINENT HISTORY: Sisters with breast cancer. TECHNIQUE: Digital bilateral breast nallely (3D mammographic acquisition) in the CC and MLO projections. 2-D mediolateral oblique (MLO) and craniocaudad (CC) views of both breasts were obtained. CAD: Full Field Digital Mammography with Computer Added Detection was performed. COMPARISON: Comparison is made with prior study dated 03/22/2021 and 04/04/2019. FINDINGS: Breast Composition: The breasts are extremely dense, which lowers the sensitivity of mammography. There are no dominant masses or suspicious calcifications. 2 tissue markers are once again seen in the retroareolar region of the right breast. No other significant abnormalities are identified. There has been no significant change since the prior study. BI/SCRN MAMM (CAD)W/NALLELY BILAT IMPRESSION: Stable bilateral screening mammogram. Yearly follow-up mammogram recommended. (A) ASSESSMENT CATEGORY: BIRADS Category 2: Benign. A letter regarding these results will be sent to the patient by the facility within 30 days. Approximately 10% of breast cancers are not detected by mammography. A normal mammogram should not delay biopsy of a clinically suspicious abnormality. [id number] Electronically Signed: Shay Montez MD at 9:33 EST ,
== END | disposition home or self-care (01) ==
LOC: OPBI 08:04
PROVIDERS: PCP Family Medicine; Visit Provider Family Medicine
DX: Z12.31 Encounter for screening mammogram for malignant neoplasm of breast (principal); Z80.3 Family history of malignant neoplasm of breast
CPT/HCPCS: 77063; 77067

== ENCOUNTER → 2022-05-04 | Outpatient (CLI) | payer MEDICARE, MEDICAID, SELFPAY ==
[2022-05-04 16:46] LABS: Bacteria 0 SEEN /hpf (None Seen); Mucous, Urine 0 SEEN /hpf (<or=2+); Red Blood Cells-Urine 0 SEEN /hpf (0-5); White Blood Cells 0 SEEN /hpf (0-5)
[2022-05-04 17:54] LABS: Absolute Lymphocyte Count 2.21 X10^3/uL (0.83-4.51); Absolute Neutrophil Count 1.8 X10^3/uL (2.0-7.7); Basophil# 0.02 X10^3/uL; Basophil% 0.4 % (0-1); Eosinophil# 0.15 X10^3/uL; Eosinophils% 3.2 % (0-5); Hematocrit 42.3 % (37-47); Hemoglobin 14.2 g/dL (12.0-15.0); Lymphocyte # 2.21 X10^3/ul (0.83-4.51); Lymphocyte % 47.5 % (19-41); Mean Corp Hgb Conc 33.6 g/dL (32-36); Mean Corpuscular Hgb 30.7 pg (27.0-32.0); Mean Corpuscular Volume 91.6 fL (81-99); Mean Platelet Vol. 10.5 fl (6.2-12.0); Monocyte# 0.44 X10^3/uL; Monocyte% 9.5 % (0-10); NRBC Flagged by Analyzer 0 % (0-5); Neutrophil # 1.82 X10^3/uL (2.7-7.7); Neutrophil % 39.2 % (47-70); Platelet Count 201 K/mm3 (150-450); RBC Distribution Width CV 12.7 % (11.6-14.6); RBC Distribution Width SD 42.3 fl (35.1-43.9); Red Blood Count 4.62 M/mm3 (4.2-5.4); White Blood Count 4.7 K/mm3 (4.4-11.0)
[2022-05-04 17:59] LABS: Color, Urine Yellow (Yellow); Glucose, Dipstick Normal (Normal); Ketone-Dipstick Negative (Negative); Leukocyte Esterase-Dipstick Negative /ul (Negative); Nitrite-Dipstick Negative (Negative); Occult Blood-Urine Negative /ul (Negative); Protein-Dipstick Negative (Negative); Specific Gravity, Urine 1.005 (1.002-1.030); Urine Bilirubin Dipstick Negative (Negative); Urine Clarity Clear (Clear); Urine Urobilinogen Normal (Normal)
[2022-05-04 18:23] LABS: CRP < 2.90 mg/L (0.0-3.0)
[2022-05-04 18:42] LABS: Squamous Epithelial Cells - UA 0-5 SEEN /hpf (5-10)
== END | disposition home or self-care (01) ==
LOC: MFPLAB 16:44
PROVIDERS: PCP Family Medicine; Visit Provider Family Medicine
DX: R10.9 Unspecified abdominal pain (principal)
CPT/HCPCS: 36415; 81001; 85025; 86140

== ENCOUNTER 2022-06-05 12:00 | Outpatient (RCR) | payer MEDICARE, MEDICAID, SELFPAY ==
--- NOTE | 2022-05-11 08:59 | HP.PTEVAL ---
Patient's Visit Information JOSE FONTANEZ is a 76 year old F referred to Physical Therapy by Dr. Leonid Smith MD with a diagnosis of Left flank pain; Iliocostalis syndrome. Date of Evaluation: 05/11/22 Physical Therapist: Edwin Ruiz - Visit Plan Frequency: 1-2x /Week Duration: 6 Weeks Plan: Continue to work on improving core, back, and hip strength especially hip abductors and extensors. Use manual therapy as needed. - Subjective Pt. is a 76 y.o. female who had left flank pain for a couple of days a week or so ago with no specific cause that she is aware of. Her PLOF includes no history of left flank pain in the past. She has not had any recent imaging. Pt. denies anymore pain currently the last few days. She denies any pain while eating or after eating. Pt. denies any change in bowel or bladder function or unexplained weight loss. Pt. denies any back pain. She has difficulty with lifting things, pushing/pulling, walking long periods, and yard work. Pt. is retired. Her goal with physical therapy is to get stronger. Pt. denies any pain. Her PMH includes skin cancer, lump removed from both breasts, hysterectomy, and tonsillectomy. Pt. lives with her daughter and grand daughter. Her hobbies include reading and playing games. - Objective Palpation- Tenderness over left lower ribs. Lumbar AROM- WNL for all motions except min restriction with flexion. No pain. Hip PROM- WNL bilaterally. Mild tight hamstrings bilaterally. Left hip strength flexion 5/5, abduction 3+/5, adduction 4+/5, extension 3+/5, knee flexion 5/5, knee extension 4+/5, ankle DF 5/5, ankle PF 5/5. Right hip strength flexion 5/5, abduction 3+/5, adduction 4+/5, extension 3+/5, knee flexion 5/5, knee extension 4+/5, ankle DF 5/5, ankle PF 5/5. Sensation- WNL bilateral lower extremities. Gait- Pt. ambulates with antalgic gait pattern of right lower extremity and no assistive device. Stairs- Pt. ascends/descends stairs with step to gait pattern and unilateral handrail. - Balance/Special Test Scores Lower Extremity Functional Score: 42 - Goals Goal 1:: Pt. will be able to walk for at least 15 minutes with no rest break in order to improve endurance. Goal Time Frame: 4-6 Weeks Goal 2:: Pt. will improve bilateral LE strength to 4/5 for all motions in order to improve mobility. Goal Time Frame: 4-6 Weeks Goal 3:: Pt. will be able to ascend/descend a flight of stairs with alternating step pattern and unilateral handrail. Goal Time Frame: 4-6 Weeks Goal 4:: Pt. will be able to lift at least 20# with proper body mechanics and no pain. Goal Time Frame: 4-6 Weeks Goal 5:: Pt. will rate pain at worst at 3/10 with ADL's. Goal Time Frame: 4-6 Weeks Goal 6:: Pt. will improve LEFS score < 40% disability in order to improve ADL's. Goal Time Frame: 4-6 Weeks - Rehabilitation Potential Physical Therapy Diagnosis: Decreased core, back, hip strength, balance, and pain Rehabilitation Potential: Good - Anticipated Interventions Patient/Client Instruction: Educate patient on: Condition, Plan of Care, Benefits of Fitness Program For the Purpose of:: To improve ability to perform ADL's, To improve performance and independence with ADL's, To assume or resume ADL's, To improve health and function, To improve tolerance to ADL's Therapeutic Exercise to Include: Strength training, Endurance training, Balance training, Body mechanics, Postural training, Gait and locomotor training, Dynamic Lumbar Stabilization Comment: Continue to work on improving core, back, and hip strengthening especially hip abduction and extension. Also work on improving balance as well. For the Purpose of:: To improve ability to perform ADL's, To improve performance and independence with ADL's, To assume or resume ADL's, To improve tolerance to ADL's Functional Training to Include: ADL Training, Gait training For the Purpose of:: To improve ability to perform ADL's, To improve performance and independence with ADL's, To assume or resume ADL's, To improve tolerance to ADL's Manual Therapy Techniques to Include: Mobilization, Soft tissue mobilization For the Purpose of:: To decrease pain, To improve ability to perform ADL's, To improve performance and independence with ADL's, To decrease soft tissue restriction, To assume or resume ADL's, To improve tolerance to ADL's Assistive Devices: Cane For the Purpose of:: To decrease pain, To improve safety with gait, To improve tolerance to ADL's Thank you for the opportunity to evaluate your patient. For Medicare and Medicare HMO plans, please review the plan of care and approve it. It will need to be FAXED BACK to us at [phone] for Medicare purposes. For Medicare only, by signing this I certify the plan of care. Please let me know if there are questions or concerns regarding this plan of care. Physician Signature: Date:
--- NOTE | 2022-09-21 11:42 | HP.PT.NRP ---
JOSE FONTANEZ was seen in my office for initial evaluation on 05/11/22. The following Plan of Care was established for this patient: Initial Frequency: 1-2x /Week Initial Duration: 6 Weeks Patient/Client Instruction: Educate patient on: Condition, Plan of Care, Benefits of Fitness Program For the Purpose of:: To improve ability to perform ADL's, To improve performance and independence with ADL's, To assume or resume ADL's, To improve health and function, To improve tolerance to ADL's Therapeutic Exercise to Include: Strength training, Endurance training, Balance training, Body mechanics, Postural training, Gait and locomotor training, Dynamic Lumbar Stabilization For the Purpose of:: To improve ability to perform ADL's, To improve performance and independence with ADL's, To assume or resume ADL's, To improve tolerance to ADL's Functional Training to Include: ADL Training, Gait training For the Purpose of:: To improve ability to perform ADL's, To improve performance and independence with ADL's, To assume or resume ADL's, To improve tolerance to ADL's Manual Therapy Techniques to Include: Mobilization, Soft tissue mobilization For the Purpose of:: To decrease pain, To improve ability to perform ADL's, To improve performance and independence with ADL's, To decrease soft tissue restriction, To assume or resume ADL's, To improve tolerance to ADL's Assistive Devices: Cane For the Purpose of:: To decrease pain, To improve safety with gait, To improve tolerance to ADL's This patient was last seen in our office 06/05/22. Pertinent comments regarding their Physical therapy will appear below: Pt seen 7 visits of POC and was staying about the same. He did not schedule or attend his recheck at the end of his POC. at this point it has been over 3 months and I will discontinue due to nonattendance. At this point I will be discontinuing this patient from physical therapy. I would be happy to see this patient again in the future if found appropriate by the physician. Thank you! Leonid March, DPT, OCS, CSCS Balance/Gait/Functional tests - Balance/Special Test Scores Lower Extremity Functional Score: 42
== END 2022-06-05 19:00 | disposition home or self-care (01) ==
LOC: PT 12:00
PROVIDERS: PCP Family Medicine; Referring Provider Family Medicine; Visit Provider Family Medicine
DX: R10.9 Unspecified abdominal pain (principal)
CPT/HCPCS: 97110; 97161

== ENCOUNTER → 2022-07-13 | Outpatient (CLI) | payer MEDICARE, MEDICAID, SELFPAY | END | disposition home or self-care (01) | LOC: LABSPEC 14:11 | PROVIDERS: PCP Family Medicine; Visit Provider Family Medicine | DX: R39.9 Unspecified symptoms and signs involving the genitourinary system (principal) | CPT/HCPCS: 87086 ==

== ENCOUNTER → 2022-08-24 | Outpatient (CLI) | payer MEDICARE, MEDICAID, SELFPAY ==
--- NOTE | 2022-08-24 13:11 | VDLE_ITS ---
Reason For Study: Pain RIGHT LEFT CFV is compressible, spontaneous, phasic, GSV is normal. competent and demonstrates normal CFV is compressible, spontaneous, phasic, augmentation. competent, and demonstrates normal Procedure augmentation. This is a venous duplex using B-mode, color FV is compressible, spontaneous, phasic, flow and spectral Doppler. competent and demonstrates normal Exam performed in department. augmentation. A preliminary report was called and/or faxed POP V is compressible, spontaneous, phasic, to Dr. Kimble. competent and demonstrates normal augmentation. T/P Trunk is compressible. PTV is compressible. LT PerV is compressible. VL/Venous Duplex US, Unilateral Interpretation Summary Deep veins of the left lower extremity are patent and compressible segmentally. There is no evidence of left lower extremity deep vein thrombosis. Valvular competence appears intac t within the proximal deep venous system on the left . The left great saphenous vein appears patent a nd compressible segmentally. The right common femoral vein is patent and compressible . Ordering Physician: Farhad Kimble Referring Physician: Liza Rose M.D. Performed By: Torie Britt RVT
== END | disposition home or self-care (01) ==
LOC: CVS 13:01
PROVIDERS: PCP Family Medicine; Referring Provider Family Medicine; Visit Provider Family Medicine
DX: M79.605 Pain in left leg (principal)
CPT/HCPCS: 93971

== ENCOUNTER → 2022-10-10 | Outpatient (CLI) | payer MEDICARE, MEDICAID, SELFPAY ==
[2022-10-10 12:33] LABS: AST(SGOT) 20 U/L (15-37); Alanine Aminotransfer ALT/SGPT 30 U/L (13-56); Cholesterol 155 mg/dL (200); High Density Lipoprotein 55 mg/dL; Triglycerides 178 mg/dL; Very Low Density Lipoprotein 36 mg/dL (5-40)
== END | disposition home or self-care (01) ==
LOC: MFPLAB 09:56
PROVIDERS: PCP Family Medicine; Visit Provider Family Medicine
DX: E11.69 Type 2 diabetes mellitus with other specified complication (principal)
CPT/HCPCS: 36415; 80061; 84450; 84460

== ENCOUNTER → 2023-04-23 | Outpatient (CLI) | payer MEDICARE, MEDICAID, SELFPAY ==
--- NOTE | 2023-04-23 09:43 | BI_ITS ---
MAMMOGRAPHY - BILATERAL SCREENING REASON FOR EXAM: Female, 77 years old. Routine annual screening examination. PERTINENT HISTORY: Sisters with breast cancer. Chronic inversion of the left nipple. TECHNIQUE: Digital bilateral breast nallely (3D mammographic acquisition) in the CC and MLO projections. 2-D mediolateral oblique (MLO) and craniocaudad (CC) views of both breasts were obtained. CAD: Full Field Digital Mammography with Computer Added Detection was performed. COMPARISON: Comparison is made with prior study April 19, 2022 and March 22, 2021. FINDINGS: Breast Composition: The breasts are extremely dense, which lowers the sensitivity of mammography. There are no dominant masses or suspicious calcifications. 2 T-shaped clip markers are once again seen in the retroareolar region of the right breast No other significant abnormalities are identified. There has been no significant change since the prior study. BI/SCRN MAMM (CAD)W/NALLELY BILAT IMPRESSION: Stable bilateral screening mammogram. Yearly follow-up mammogram recommended. (A) ASSESSMENT CATEGORY: BIRADS Category 2: Benign. A letter regarding these results will be sent to the patient by the facility within 30 days. Approximately 10% of breast cancers are not detected by mammography. A normal mammogram should not delay biopsy of a clinically suspicious abnormality. [id number] Electronically Signed: Shay Montez MD at 11:37 EST ,
== END | disposition home or self-care (01) ==
LOC: OPBI 09:43
PROVIDERS: PCP Family Medicine; Referring Provider Family Medicine; Visit Provider Family Medicine
DX: Z12.31 Encounter for screening mammogram for malignant neoplasm of breast (principal)
CPT/HCPCS: 77063; 77067

== ENCOUNTER → 2023-11-05 | Outpatient (CLI) | payer MEDICAID, MEDICARE, SELFPAY | END | disposition home or self-care (01) | LOC: MFPLAB 16:45 | PROVIDERS: PCP Family Medicine; Visit Provider Family Medicine | DX: Z00.00 Encounter for general adult medical examination without abnormal findings (principal) ==

== ENCOUNTER → 2024-02-19 | Outpatient (CLI) | payer MEDICARE, MEDICAID, SELFPAY ==
--- NOTE | 2024-02-19 09:31 | BI_ITS ---
MAMMOGRAPHY - UNILATERAL DIAGNOSTIC: LEFT BREAST REASON FOR EXAM: Female, 78 years old. Left breast lump. PERTINENT HISTORY: Sisters with breast cancer. Chronic left nipple inversion. Remote bilateral excisional breast biopsies. TECHNIQUE: Digital unilateral breast titus (3D mammographic acquisition) in the CC and MLO projections. 2-D mediolateral oblique (MLO) and craniocaudad (CC) views of both breasts were obtained. CAD: Full Field Digital Mammography with Computer Added Detection was performed. COMPARISON: Comparison is made with prior study dated April 23, 2023 and April 19, 2022. FINDINGS: Breast Composition: The breasts are extremely dense, which lowers the sensitivity of mammography. There are no dominant masses or suspicious calcifications. No other significant abnormalities are identified. There has been no significant change since the prior study. BI/DIAG MAMM W/CAD, UNILAT IMPRESSION: Stable unilateral diagnostic mammogram. With the patient''s history of a palpable lump in the upper central portion of the left breast, correlation with ultrasound recommended. ASSESSMENT CATEGORY: BIRADS Category 0: Incomplete. Need additional imaging evaluation. A letter regarding these results will be sent to the patient by the facility within 30 days. Approximately 10% of breast cancers are not detected by mammography. A normal mammogram should not delay biopsy of a clinically suspicious abnormality. Electronically Signed: Shay Montez MD at 10:21 EDT ,
--- NOTE | 2024-02-19 09:31 | US_ITS ---
STUDY: THYROID ULTRASOUND REASON FOR EXAM: Female, 78 years old. Thyroid nodule follow up TECHNIQUE: Ultrasound evaluation of the thyroid was performed with real-time and static palacio-scale imaging. COMPARISON: Comparison is made with prior study dated December 17, 2021. FINDINGS: RIGHT LOBE: The right lobe of the thyroid gland measures 4.1 cm x 1.4 cm x 2.2 cm. There is a homogeneous echotexture. There are no demonstrated solid, cystic or complex lesions. LEFT LOBE: The left lobe of the thyroid gland measures 4.7 cm x 2.2 cm x 2.5 cm. There is a homogeneous echotexture. There is a 2.8 cm x 2.4 cm x 2.6 cm complex solid and cystic nodule in the inferior pole. Increased vascularity is seen. This is unchanged. Biopsy recommended.. ISTHMUS: The isthmus measures 4 mm. The regional lymph nodes are normal. US/Thyroid IMPRESSION: Complex 4.7 cm x 2.2 cm x 2.5 cm mass in the inferior pole of the left lobe of the thyroid. Biopsy recommended. Electronically Signed: Shay Montez MD at 13:31 EDT ,
--- NOTE | 2024-02-19 10:24 | US_ITS ---
STUDY: ULTRASOUND BREAST - LEFT REASON FOR EXAM: Female, 78 years old. Left palpable lump. TECHNIQUE: Axial and longitudinal images of the LEFT breast were performed with a high resolution ultrasound transducer. # OF IMAGES: 18 COMPARISON: Comparison is made with prior mammogram dated February 19, 2024. FINDINGS: LEFT Breast: The upper half of the left breast was examined with ultrasound. There is dense fibroglandular tissue. No sonographic adenopathy is seen. US/Breast Limited Unilateral IMPRESSION: No sonographic abnormality is seen. ASSESSMENT CATEGORY: BIRADS Category 2: Benign. A letter regarding these results will be sent to the patient by the facility within 30 days. Electronically Signed: Shay Montez MD at 11:10 EDT ,
== END | disposition home or self-care (01) ==
PROVIDERS: PCP Family Medicine; Visit Provider Family Medicine
DX: N63.20 Unspecified lump in the left breast, unspecified quadrant (principal); E04.1 Nontoxic single thyroid nodule; R92.8 Other abnormal and inconclusive findings on diagnostic imaging of breast
CPT/HCPCS: 76536; 76642; 77061; 77065; G0279

== ENCOUNTER → 2024-03-14 | Outpatient (CLI) | payer MEDICARE, MEDICAID, SELFPAY ==
--- NOTE | 2024-03-14 | FLU_PTH ---
PATIENT: JOSE FONTANEZ LOC: [facility] U#:[id number] AGE/SX: 78/F ROOM: RE03/14/[address]: Dr. He Moran MD : 1945 BED: DIS: 03/14/2024 SPEC #: [id number] RECD: 03/14/24 12:46 STATUS: ALIREZA EB #: [id number] JASON: 03/14/24 00:[address]: He Moran DEPT: CYTOLOGY RECD BY: Juan Palacios ENTERED: 03/14/24 12:46 SP TYPE: Fluid OTHR DR: Dr. Liza Rose MD Tissues: A - Thyroid gland, NOS B - Thyroid gland, NOS C - Thyroid gland, NOS Procedures: Special Stain Group II Surgery Specimen Level IV Cytospin Fluid HEADER OPERATION: Fine needle aspiration of thyroid nodule PRE-OP DIAGNOSIS: Thyroid nodule TISSUE SUBMITTED: A- Left inferior thyroid fluid, B- Left inferior thyroid nodule slides, C- Thyroid cyst aspirate DIAGNOSIS CYTOLOGY A. Left inferior thyroid nodule fluid, fine needle aspiration (cytospin and cellblock): Negative for malignant cells. B. Left inferior thyroid nodule, fine needle aspiration (smears): Consistent with benign follicular/colloid nodule, [place] Category II. Adequate for evaluation. C. Thyroid cyst aspiration, fine needle aspiration (cytospin and cellblock): Negative for malignant cells. See comment. BJ/ 03/17/2024 COMMENT As per EMR, all three specimens are from the same nodule. C. Rare benign follicular cells and macrophages are noted. Correlation with clinical, radiologic findings and appropriate follow up are necessary. Please make reference to previous specimen [id number] left thyroid nodule, fine needle aspiration with diagnosis of a few clusters of benign follicular cells and macrophages are noted. The [place] System for thyroid diagnostic categorization was used in the evaluation of this case. CYTOLOGY STUDY Slides are reviewed. CYTOLOGY GROSS A. Received is 30 ml of red fluid labeled with the patient's name and and designated per the requisition as Left inferior thyroid nodule. Submitted for cytology preparation including cell block. B. Received are 4 smears labeled with the patient's name and designated per the requisition as Left inferior thyroid nodule. Submitted for staining. C. Received is 1 ml of red hazy fluid labeled with the patient's name and and designated per the requisition as Thyroid cyst. Submitted for cytology preparation including cell block. Mr 03/14/2024 TC:5 CPT: 81234v8,33274u2
== END | disposition home or self-care (01) ==
LOC: LABSPEC 11:04
PROVIDERS: PCP Family Medicine; Referring Provider Surgery; Visit Provider Surgery
DX: E04.1 Nontoxic single thyroid nodule (principal)
CPT/HCPCS: 88108; 88305; 88313

== ENCOUNTER 2024-04-04 08:23 | Day surgery (SDC) | payer MEDICARE, MEDICAID, SELFPAY ==
[2024-04-04] VITALS (8 sets, daily range): BP systolic 106–135; BP diastolic 70–85; PULSE 68–95; RESP 14–16; TEMP 36.5–37.1; O2SAT 97–99; BMI 36.1
--- NOTE | 2024-04-04 09:05 | PRE.ANES_ITS ---
ASA Classification* ASA Classification ASA Classification: 2 Assessment & Plan Anesthesia* Anesthesia Assessment Anesthesia Assessment: Discussed sedation and/or anesthesia options, risks, benefits, and alternatives with patient/parents/legal guardian/POA. Questions invited. The patient/parents/legal guardian/POA seems to understand and agrees to proceed with anesthesia plan. Reviewed the physical assessment, medical history, allergy history and patient home medications list prior to surgery/procedure/anesthetic and documented any changes. Performed airway and anesthesia risk assessments. Anesthesia Type Anesthesia Type: MAC Anesthesia Focused Assessment* Temperature: 98.7 F Pulse Rate: 95 Blood Pressure: 134/70 Respiratory Rate: 14 Pulse Ox: 97 Airway Assessment Mouth opens: >3 cm Mallampati Score: II Focused Labs Anesthesia Preop lab: CBC WBC 4.7 K/mm3 (4.4-11.0) 05/04/22 16:45 RBC 4.62 M/mm3 (4.2-5.4) 05/04/22 16:45 Hgb 14.2 g/dL (12.0-15.0) 05/04/22 16:45 Hct 42.3 % (37-47) 05/04/22 16:45 Plt Count 201 K/mm3 (150-450) 05/04/22 16:45 CHEMISTRY Potassium 4.0 mmol/L (3.5-5.1) 09/05/21 11:52 Sodium 139 mmol/L (136-145) 09/05/21 11:52 BUN 10 mg/dL (7-18) 09/05/21 11:52 Creatinine 0.71 mg/dL (0.55-1.02) 09/05/21 11:52 Glucose 108 mg/dL (74-106) H 09/05/21 11:52 POC Glucose 76 mg/dL (70-110) 01/07/14 08:51 TSH 1.44 uIU/mL (0.358-3.74) 12/21/20 09:56 COAG Pre-Assessment Diagnosis/Proposed Procedure Planned Operative Procedure(s): EGD Anesthesia History 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 When Was Last Pacemaker Check QUESTION #4 FULL TEXT: You/Your Family Experience fever (hyperthermia) with Anesthesia Last Oral Intake Last Oral intake: Last Oral Intake NPO since 20:00 04/04/24 08:43 Meds taken in AM with sips of No 04/04/24 08:43 water? Meds patient instructed to take am of surgery PONV PONV - core drill operator helper: PONV - core drill operator helper Female Yes 04/03/24 08:48 HX of Motion Sickness No 04/03/24 08:48 HX of N/V After Surgery No 04/03/24 08:48 Non-Smoker Yes 04/03/24 08:48 Duration of Surgery greater No 04/03/24 08:48 than 60 minutes Number of Risk Factors 2 04/03/24 08:48 PONV Score Moderate Risk 04/03/24 08:48 Height & Weight Height & Weight: Anesthesia: Height & Weight Height 5 ft 1 in 04/04/24 08:43 Weight: 86.8 kg 04/04/24 08:43 Body Mass Index (BMI) 36.1 04/04/24 08:43 Respiratory Assessment Respiratory Assessment - core drill operator helper: Respiratory Tract Infection Hx - core drill operator helper Hx Respiratory Tract Infection No 04/03/24 08:48 STOP Sleep Apnea STOP Sleep Apnea - core drill operator helper: STOP Sleep Apnea - core drill operator helper Hx Hypertension No 04/03/24 08:48 Hx Sleep Apnea No 04/03/24 08:48 CPAP BIPAP Do you snore loudly (louder No 04/03/24 08:48 than talking or can be heard Do you often feel tired/ No 04/03/24 08:48 fatigued/ sleepy during daytime? Has anyone observed you stop No 04/03/24 08:48 breathing during sleep? STOP Results Negative 04/03/24 08:48 QUESTION #5 FULL TEXT : Do you snore loudly (louder than talking or can be heard through closed doors)? 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 Specify any problems Hx of Preganancy in last 3 No 04/03/24 08:48 Months Nurse Filling Out Transfusion DSCHRIBER 04/03/24 08:48 & Questions: Date: 04/03/24 04/03/24 08:48 Time: 08:49 04/03/24 08:48 Patient unable to answer at this time (ie. confused, unrespo /Reproduction History /Reproductive History - core drill operator helper: /Reproductive Hx- core drill operator helper Hx Now No 04/03/24 08:48 Gestational Age (in weeks): EDC: Hx Hx Para Hx Section SAB No 04/03/24 08:48 PFSH Medical History Post-menopausal Diabetes Migraine headache Gastric reflux Former smoker Shortness of breath on exertion History of edema Wears glasses Wears dentures Anxiety Thyroid disease Arthritis High cholesterol Environmental allergies GERD (gastroesophageal reflux disease) Osteoarthritis Home Medications ?Medication ?Instructions ?Recorded ?Last Taken ?Type cetirizine 10 mg capsule 10 mg PO DAILY 03/04/20 04/03/24 History montelukast 10 mg tablet 10 mg PO DAILY 03/04/20 04/03/24 History atorvastatin 10 mg tablet (Lipitor) 10 mg PO QHS 11/25/20 04/03/24 History multivitamin 1 tab PO DAILY 11/25/20 04/03/24 History citalopram 10 mg tablet 10 mg PO DAILY 12/15/20 04/03/24 History omeprazole 20 mg capsule,delayed 20 mg PO DAILY 12/15/20 04/03/24 History release Lactobacillus acidophilus 10 10,000 mmu cells PO DAILY 04/04/24 04/03/24 History billion cell capsule (Probiotic) Allergy/AdvReac Type Severity Reaction Status Date / Time alendronate sodium (From Allergy Itching Verified 04/04/24 08:42 Fosamax) amoxicillin (From Augmentin) AdvReac Diarrhea Verified 04/04/24 08:42 cephalexin (From Keflex) AdvReac NEEDS Verified 04/04/24 08:42 FOLLOW-UP clavulanic acid (From AdvReac Diarrhea Verified 04/04/24 08:42 Augmentin) Family History Father Heart disease Emphysema lung Sister Breast cancer Cancer lung w/ mets Sister Breast cancer Mother Colon cancer Surgical History History of esophagogastroduodenoscopy (EGD) Hx of colonoscopy History of lumpectomy of both breasts History of tonsillectomy and adenoidectomy History of hysterectomy History of cholecystectomy Social History Smoking Status: Former smoker Review of Systems (Anesthesia) ROS Narrative System reviewed and no additional complaints, except as documented.
--- NOTE | 2024-04-04 09:30 | IMM_PTH ---
PATIENT: JOSE FONTANEZ LOC: [facility] U#:[id number] AGE/SX: 78/F ROOM: RE04/04/[address]: Dr. He Moran MD : 1945 BED: DIS: 04/04/2024 SPEC #: [id number] RECD: 04/04/24 13:45 STATUS: ALIREZA RESamira #: [id number] JASON: 04/04/24 09:[address]: He Moran DEPT: IMMUNOHISTOCHEMISTRY RECD BY: Brandon Aquino ENTERED: 04/04/24 13:45 SP TYPE: IMMUNO OTHR DR: Dr. Liza Rose MD Tissues: A - Gastric mucous membrane Procedures: H Pylori (initial) PHYSICIAN & INSTITUTION [place] [id number] SPECIMEN INFORMATION: Tissue Source: A- Antrum biopsy Clinical Info: History of metaplasia, globus sensation Specimen Number: [id number] CPT code: 03285 METHODOLOGY: Deparaffinized sections of prefer/formalin-fixed tissue or PAP/DQ stained slides are incubated with monoclonal/polyclonal antibodies/oligonucleotide probes. Localization is made via biotin free immunoperoxidase method. Appropriate controls are performed and reacted as expected. Results on target cell population are indicated in the following table: RESULTS: ANTIBODY / CLONE RESULT Block A H Pylori (polyclonal) negative These tests were developed and their performance characteristics determined by [facility]. They may not have been cleared or approved by the U.S. Food and Drug Administration. The FDA has determined that such clearance or approval is not necessary. The above immunohistochemical/dualISH markers are ordered and reviewed by the Pathologist. INTERPRETATION: A. Antrum, biopsy: Negative for Helicobacter pylori organisms. AM 04/07/2024
--- NOTE | 2024-04-04 09:30 | EGD_PTH ---
PATIENT: JOSE FONTANEZ LOC: [facility] U#:[id number] AGE/SX: 78/F ROOM: RE04/04/[address]: Dr. He Moran MD : 1945 BED: DIS: 04/04/2024 SPEC #: [id number] RECD: 04/04/24 13:10 STATUS: ALIREZA EB #: [id number] JASON: 04/04/24 09:[address]: He Moran DEPT: SURGICAL PATHOLOGY RECD BY: Jeane Turcios ENTERED: 04/04/24 13:51 SP TYPE: EGD BIOPSY OTHR DR: Dr. Liza Rose MD Tissues: A - Gastric mucous membrane B - Gastric mucous membrane C - Gastric mucous membrane D - Esophagus, NOS E - Gastric mucous membrane Procedures: Special Stain Group I Surgery Specimen Level IV Alcian Blue/PAS (control) HEADER OPERATION: EGD and biopsy and polypectomy PRE-OP DIAGNOSIS: History of metaplasia, globus sensation TISSUE SUBMITTED: A- Antrum biopsy, B- Proximal gastric body polyps, C- Distal gastric body polyps, D- Z-line biopsy, E- Cardia polyp MICROSCOPIC DIAGNOSIS A. Gastric antrum, biopsy: Chronic gastritis. See comment. B. Proximal gastric body polyps, biopsy: Fundic gland polyps. C. Distal gastric body polyps, biopsy: Fragments of fundic gland polyp. D. Z-line, biopsy: Gastroesophageal junction biopsy with mild chronic inflammation. No evidence of goblet cell metaplasia. See comment. E. Gastric cardia polyp, biopsy: Fragments of fundic gland polyp. . 04/07/2024 COMMENT A. The results of immunohistochemistry for Helicobacter pylori will be reported separately ([id number]). D. Alcian blue/PAS stain with matched control is used in the evaluation of the specimen. MICROSCOPIC DESCRIPTION Slides are reviewed. GROSS DESCRIPTION A. Received in fixative is one container labeled with the patient's name and designated Antrum biopsy. The specimen consists ofone irregular fragment of light an soft tissue that measures 0.4 x 0.3 x 0.1 cm. The specimen is totally submitted in one cassette. B. Received in fixative is one container labeled with the patient's name and designated Proximal gastric body polyp. The specimen consists of multiple irregular fragments of light an soft tissue that in aggregate measure 2.0 x 1.5 x 0.2 cm. The specimen is totally submitted in one cassette. C. Received in fixative is one container labeled with the patient's name and designated Distal gastric body polyp. The specimen consists of multiple irregular fragments of light an soft tissue that in aggregate measure 1.2 x 0.3 x 0.1 cm. The specimen is totally submitted in one cassette. D. Received in fixative is one container labeled with the patient's name and designated Z-line biopsy. The specimen consists of one irregular fragment of light an soft tissue that measures 0.3 x 0.3 x 0.1 cm. The specimen is totally submitted in one cassette. E. Received in fixative is one container labeled with the patient's name and designated Cardia polyp. The specimen consists of a an-pink polyp measuring 0.5 x 0.5 x 0.3cm. Two smaller fragments of an soft tissue are also noted measuring in aggregate 0.3 x 0.2 x 0.1cm. The entire specimen is submitted in one cassette. SJAlma Deliamr 04/04/2024 TC:5 CPT:[id number]
--- NOTE | 2024-04-04 09:41 | PCM.HP.BLA ---
History and Physical Date of Admission: 04/04/24 Date of Service: 03/14/24 MR#: [id number] Acct: [id number] Name: JOSE BROOKS Rep #: [id number] : 1945 Provider: Dr. He Moran MD Age/Sex: 78/F Location: [facility] Status: Signed Intake Vital Signs 10/19/2208:22 03/14/2408:02 Height 5 ft 1 in 5 ft 1 in Weight: 191 lb 6 oz BMI 36.1 BP 129/74 H Blood Pressure Location Lt brachial Position Sitting Respiration 18 Pulse 92 Pulse Source Monitor Temp 97.8 F Temp Source Temporal Pulse Oximetry (%) 94 Oxygen Delivery Method room air Intake Visit Reasons: THYROID NODULE Chief Complaint: thyroid nodule Is patient in pain?: No Allergies alendronate sodium (From Fosamax) Allergy (Verified 03/14/24 08:03) Itchingamoxicillin (From Augmentin) Adverse Reaction (Verified 03/14/24 08:03) Diarrheacephalexin (From Keflex) Adverse Reaction (Verified 03/14/24 08:03) NEEDS FOLLOW-UPclavulanic acid (From Augmentin) Adverse Reaction (Verified 03/14/24 08:03) Diarrhea Medications ?Medication ?Instructions ?Recorded ?Confirmed ?Type cetirizine 10 mg capsule 10 mg PO DAILY 03/04/20 03/14/24 History montelukast 10 mg tablet 10 mg PO DAILY 03/04/20 03/14/24 History atorvastatin 10 mg tablet (Lipitor) 10 mg PO DAILY 11/25/20 03/14/24 History multivitamin 1 tab PO DAILY 11/25/20 03/14/24 History citalopram 10 mg tablet 10 mg PO DAILY 12/15/20 03/14/24 History omeprazole 20 mg capsule,delayed 20 mg PO DAILY 12/15/20 03/14/24 History release Have you fallen in the past year?: No PFSH Medical History Wears glasses Wears dentures Anxiety Thyroid disease Arthritis High cholesterol Hypoglycemia Environmental allergies Hyperlipidemia GERD (gastroesophageal reflux disease) Depression Osteoarthritis Surgical History Hx of colonoscopy History of colonoscopy History of lumpectomy of both breasts History of tonsillectomy and adenoidectomy History of hysterectomy History of cholecystectomy Family History Father Heart disease Emphysema lungSister Breast cancer Cancer lung w/ metsSister Breast cancerMother Colon cancer Social History Smoking Status: Former smoker HPI HPI HPI: Patient is a 78-year-old female who is referred back to me by Dr. Rose after initial consultation and double endoscopy in 2020. She shares that today's visit is occasioned by the experience of feeling like something is in her left neck when swallowing. She denies any associated pain. She denies any hoarseness or change of her voice. She denies any new cough development. She confirms that she has remained on a PPI for history of reflux and heartburn and really does not experience the symptoms unless she forgets her omeprazole medication. She otherwise denies any new health updates. In the interim since our last visit she has completed a thyroid ultrasound on 02/19/2024. This showed a right thyroid lobe measuring 4.1 x 1.4 x 2.2 cm. The left thyroid lobe measures 4.7 x 2.2 x 2.5 cm. Within the inferior pole radiology identifies a mixed composition nodule measuring 2.8 x 2.4 x 2.6 cm and recommended biopsy. ROS General General: No weight change, appetite, fatigue, colon cancer, breast cancer or weakness HEENT HEENT: Yes difficulty swallowing; No eye injury, eye surgery, swollen glands or hoarseness Endo Endocrine: No thyroid disease, diabetes mellitus, thyroid cancer, Hair loss, heat intolerance or cold intolerance Skin Skin: No rash or changing moles Musc Musculoskeletal: Yes arthritis; No back problems, rheumatoid arthritis, gout or joint pain Cardio Cardiovascular: No murmur, pacemaker, heart disease, atrial fibrillation, high blood pressure, heart attack, heart stent, palpitations, shortness of breat with exertion or chest pain Psych Psychiatric: Yes anxiety; No depression or hearing voices Resp Respiratory: No shortness of breath, No sleep apnea, No cough, No COPD, No asthma, No emphysema and No wheezing Gastro Gastrointestinal: No abdominal pain, No nausea or vomiting, No diarrhea, No constipation, No blood in stool, Yes acid reflux, No hemorrhoids, No ulcers, No gallbladder problem and No black,tarry stools Jose Hematologic: No blood thinners, No blood disorders, No bleeding, No anemia and No blood clots Neuro Neurologic: No numbness, No tingling and No weakness Exam Const General: cooperative and anxious Orientation: alert, awake and oriented x3 Neck Other: Patient with palpable left sided thyroid nodule that is nontender with this palpation. No cervical lymphadenopathy appreciated. Ultrasound exam findings are reproduced by my own bedside ultrasound. Office Procedures Fine Needle Aspiration Provider Documentation Details: Indication: Left thyroid nodule After obtaining patient consent and conducting a timeout amongst those present, the procedure was commenced by locating the suspicious nodule in the inferior pole of the left thyroid lobe using ultrasound. Superficially, the skin was cleaned with an alcohol swab and a wheal of local anesthetic was created after instillin 1% lidocaine. A total volume of 14 ml 1% lidocaine was required for this procedure. Then, under ultrasound guidance, multiple passes were made into the visibly solid component of the thyroid nodule using a 25-gauge needle. Once an adequate specimen was detected within the hub of the needle and bottom of the syringe, this was handed off the field. A second pass was made in a similar manner using a 22-gauge needle. This specimen, also, was passed off the field for cytopathologic evaluation. A third pass was made with a second 22-gauge needle for Afirma/genomic sequencing banking should patient have an atypical cytopathology result. External pressure was applied to the neck to assist with hemostasis. A third and final pass (fourth pass overall) was made with a 22-gauge needle to aspirate the cystic portion of patient's thyroid nodule and resulted in retrieval of nearly 3 mL of colloid?type fluid and immediate reduction in the size of her cystic component. A quick examination was made with ultrasound to exclude any evidence of hematoma formation. Then the surface of the neck was cleaned, dried, and a bandage was applied. Patient was gradually returned to the sitting position and after short period of monitoring was dismissed. Wound care instructions and expectations regarding pathologic processing were discussed prior to dismissal. Complications: None Estimated blood loss: 2 ml Alert Ayala Alert Billing: Yes Procedure Time Out Time Out Informed consent given: Yes Consent signed: Yes Time out checklist: patient, procedure, site marked/identified, positioning of patient, supplies available, allergies confirmed and team agrees on procedure Time out staff in room: Yes Time out verified: Yes Time out date: 03/14/24 Time out time: 08:58 Assessment and Plan Assessment and Plan (1) Left thyroid nodule: Status: Acute Comment: Sonographic appearance consistent with a TI-RADS 3 and is predominantly cystic. Low suspicion for malignancy. However, the larger size of this lesion could have contributed to patient's globus sensation. Patient should note symptomatic improvement following aspiration procedure during clinic visit today. However, patient is advised that recurrence is fairly common. Should this be the case for Ms. Brooks, she may require left thyroid lobectomy. Additionally, I would like to obtain thyroid function studies. Update 03/14/2024: Patient re-presents for evaluation after marking of a globus sensation and ultrasound imaging confirmed the persistence of a mixed composition nodule. Interestingly, she denies development of any additional compressive symptomology. When compared to her November 2020 study, her most recent ultrasound actually demonstrates a 26% decrease in the size of her left inferior pole thyroid nodule by volume. Still, given that our prior FNA specimen was diagnostic I recommended we proceed for biopsy today and also offered to aspirate the additional cystic fluid to see if this would translate to symptomatic improvement. Procedure was undertaken in uncomplicated fashion during today's visit and details are given in the procedures section of today's note. Plan: ? Patient instructed to keep head upright and ice the biopsy site ? Will follow-up with patient regarding cytopathology once known (2) Globus sensation: Status: Acute Comment: As above, patient reports globus sensation in isolation and denies other compressive symptomology. She does specify that this is in relation to swallowing only. 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 She is technically at time for surveillance of this finding in addition to the workup being conducted in parallel for her thyroid. Thus I recommended proceeding for follow-up EGD with inspection of her GE junction. She does confirm that she has remained faithful with her use of PPI and is otherwise asymptomatic for her prior GERD diagnosis. Still, with the risk for transformation to esophageal malignancy and her reports of new symptoms she is receptive of this recommendation. Plan: ? Surveillance EGD for history of goblet cell metaplasia GE junction I have examined the patient and the H&P has been reviewed. There are no clinical changes since date of exam. Patient denies any progression of her swallowing complaints. She has a few questions related to why colloid nodules form with cystic fluid in the thyroid but apart from that denies any questions related to today's procedure. 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
--- NOTE | 2024-04-04 10:56 | PCM.POST.ANE ---
Anesthesia: Postop Eval I Current Vital Signs Temperature: 97.7 F Pulse Rate: 83 Blood Pressure: 106/85 Respiratory Rate: 16 Pulse Ox: 99 Oxygen Delivery Method: Room Air Assessment Airway patent: Yes Spontaneous unlabored respirations: Yes Mental status: Awake nausea: No Vomiting: No Anesthesia Complication: No Fluid Hydration Crystalloid volume administer (ml): 90 Total IV fluid infused: 90 Progress Note Anesthesia document: Postop Eval 1 completed: Yes
--- NOTE | 2024-04-04 10:57 | OP.EGD_ITS ---
Patient Name: Deepa Brooks Procedure Date: 04/04/2024 9:34 AM Date of : 1945 Age: 78 Procedure: Upper GI endoscopy Indications: Surveillance procedure, Globus sensation, Personal history of upper GI endoscopy Providers: He Moran MD Referring MD: Liza Rose Medicines: See the Anesthesia note for documentation of the administered medications Patient Profile: Refer to note in patient chart for documentation of history and physical. Patient has symptoms of chronic dysphagia. Complications: No immediate complications. Estimated blood loss: Minimal. Procedure: Pre-Anesthesia Assessment: - The heart rate, respiratory rate, oxygen saturations, blood pressure, adequacy of pulmonary ventilation, and response to care were monitored throughout the procedure. After obtaining informed consent, the endoscope was passed under direct vision. Throughout the procedure, the patient's blood pressure, pulse, and oxygen saturations were monitored continuously. The gastroscope was introduced through the mouth, and advanced to the second part of duodenum. The upper GI endoscopy was somewhat difficult due to abnormal anatomy. The patient tolerated the procedure well. Scope In: 9:51:09 AM Scope Out: 10:46:08 AM Total Procedure Duration Time 0 hours 54 minutes 59 seconds Findings: No gross lesions were noted in the duodenal bulb, in the first portion of the duodenum and in the second portion of the duodenum. No biopsies or other specimens were collected for this exam. Localized mildly erythematous mucosa without bleeding was found in the gastric antrum. Biopsies were taken with a cold forceps for Helicobacter pylori testing. Estimated blood loss was minimal. Multiple 4 to 12 mm pedunculated and sessile polyps with no bleeding and no stigmata of recent bleeding were found in the cardia, in the gastric body, on the greater curvature of the stomach and on the lesser curvature of the stomach. Polypectomy was attempted, initially using a hot snare. Polyp resection was incomplete with this device. This intervention then required a different device and polypectomy technique. The polyp was removed with a cold biopsy forceps. Resection and retrieval were complete. Estimated blood loss was minimal. A small hiatal hernia was present. No biopsies or other specimens were collected for this exam. The Z-line was regular and was found 35 cm from the incisors. Biopsies were taken with a cold forceps for histology. Estimated blood loss was minimal. Grade II varices were found in the middle third of the esophagus. They were 5 mm in largest diameter. No biopsies or other specimens were collected for this exam. Impression: - No gross lesions in the duodenal bulb, in the first portion of the duodenum and in the second portion of the duodenum. No specimens collected. - Erythematous mucosa in the antrum. Biopsied. - Multiple gastric polyps. Resected and retrieved. - Small hiatal hernia. No specimens collected. - Z-line regular, 35 cm from the incisors. Biopsied. - Grade II esophageal varices. No specimens collected. Recommendation: - Discharge patient to home (via wheelchair). - Resume previous diet today. - No aspirin, ibuprofen, naproxen, or other non-steroidal anti-inflammatory drugs for 2 days after biopsy. - Await pathology results. - Telephone my office for pathology results in 1 week. Procedure Code(s): --- Professional --- 46007, Esophagogastroduodenoscopy, flexible, transoral; with biopsy, single or multiple Diagnosis Code(s): --- Professional --- K31.89, Other diseases of stomach and duodenum K31.7, Polyp of stomach and duodenum K44.9, Diaphragmatic hernia without obstruction or gangrene I85.00, Esophageal varices without bleeding F45.8, Other somatoform disorders Z98.890, Other specified postprocedural states CPT copyright 2021 [employer]. All rights reserved. The codes documented in this report are preliminary and upon wind instrument repairer review may be revised to meet current compliance requirements. He Moran MD 04/04/2024 10:57:22 AM This report has been signed electronically. Number of Addenda: 0 Note Initiated On: 04/04/2024 9:34 AM
--- NOTE | 2024-04-04 10:58 | OP.CCLET_ITS ---
04/04/2024 Liza Rose [address] [place] [address] Re : Upper GI endoscopy procedure for Deepa Brooks Dear Dr. Rose This procedure was performed on Thursday, April 04, 2024. My impressions and recommendations are as follows: Impressions : - No gross lesions in the duodenal bulb, in the first portion of the duodenum and in the second portion of the duodenum. No specimens collected. - Erythematous mucosa in the antrum. Biopsied. - Multiple gastric polyps. Resected and retrieved. - Small hiatal hernia. No specimens collected. - Z-line regular, 35 cm from the incisors. Biopsied. - Grade II esophageal varices. No specimens collected. Recommendations : - Discharge patient to home (via wheelchair). - Resume previous diet today. - No aspirin, ibuprofen, naproxen, or other non-steroidal anti-inflammatory drugs for 2 days after biopsy. - Await pathology results. - Telephone my office for pathology results in 1 week. My findings are described in the full procedure note, which is enclosed. If I can be of further assistance, please feel free to contact me at Doctor phone number(s): , Work: . Sincerely, He Moran MD 04/04/2024 10:57:22 AM This report has been signed electronically.
--- NOTE | 2024-04-04 13:08 | PCM.POSTANE2 ---
Anesthesia Postop Eval I Sum Postop Eval Completion status Anesthesia document: Postop Eval 1 completed: Yes Anesthesia Postop Eval I Summary Anesthesia Postop Eval I Summary: Anesthesia Postop Eval I: Assessment Summary Airway patent Yes 04/04/24 10:57 [email or web address] Spontaneous unlabored Yes 04/04/24 10:57 [email or web address] respirations Mental status Awake 04/04/24 10:57 [email or web address] nausea No 04/04/24 10:57 [email or web address] Vomiting No 04/04/24 10:57 [email or web address] Anesthesia Postop Eval I: Fluid Summary Crystalloid volume administer 90 04/04/24 10:57 [email or web address] (ml) Colloids volume administered ( ml) Blood Product volume administered (ml) Total IV fluid infused 90 04/04/24 10:57 [email or web address] Anesthesia Postop Eval I: Summary Notes Anesthesia Complication No 04/04/24 10:57 [email or web address] Anesthesia Complication Comment: Post-operative progress note Anesthesia: Postop Eval II Evaluation Mental status: Awake Pain Level: 0 nausea: No Vomiting: No
== END 2024-04-04 11:35 | disposition home or self-care (01) ==
LOC: EN 08:23 → AC 08:24
PROVIDERS: PCP Family Medicine; Referring Provider Family Medicine; Visit Provider Surgery
PROC: 0DJ08ZZ Inspection of Upper Intestinal Tract, Via Natural or Artificial Opening Endoscopic (ICD-10-PCS; CPT 43235; principal; 2024-04-04 09:25)
DX: K29.50 Unspecified chronic gastritis without bleeding (principal); I85.00 Esophageal varices without bleeding; K31.7 Polyp of stomach and duodenum; K44.9 Diaphragmatic hernia without obstruction or gangrene; K21.9 Gastro-esophageal reflux disease without esophagitis; F45.8 Other somatoform disorders; F41.9 Anxiety disorder, unspecified; E04.1 Nontoxic single thyroid nodule; F32.A Depression, unspecified; M19.90 Unspecified osteoarthritis, unspecified site; E78.00 Pure hypercholesterolemia, unspecified; Z88.1 Allergy status to other antibiotic agents; Z88.0 Allergy status to penicillin; Z80.0 Family history of malignant neoplasm of digestive organs; Z90.49 Acquired absence of other specified parts of digestive tract; Z79.899 Other long term (current) drug therapy; Z87.891 Personal history of nicotine dependence; Z98.890 Other specified postprocedural states
CPT/HCPCS: 43239; 88305; 88312; 88342; A4216; J2405

== ENCOUNTER → 2024-09-17 | Outpatient (CLI) | payer MEDICARE, MEDICAID, SELFPAY ==
--- NOTE | 2024-09-17 13:45 | RAD_ITS ---
PROCEDURE: KNEE 4 OR MORE VIEWS 09/17/2024 REASON FOR EXAM: PAIN TECHNIQUE: Four views left knee FINDINGS: Severe osteoarthrosis medial compartment with near [id number] contact and marginal osteophyte formation. Degree of varus associated deformity. Bmps-[id number] appearing osteoarthrosis patellofemoral compartment. Possible small joint effusion. No fracture or dislocation. The lateral compartment appears within limits. RAD/Knee 4 or More Views IMPRESSION: Severe osteoarthrosis medial compartment with near [id number]-[id number] contact and mar ginal osteophyte formation. Degree of varus associated deformity. Biia-dl-[id number] appearing osteoarthrosis patellofemoral compartment. Possible small joint effusion. Reading Location: [id number]
== END | disposition home or self-care (01) ==
LOC: MTRAD 13:44
PROVIDERS: PCP Family Medicine
DX: M25.562 Pain in left knee (principal)
CPT/HCPCS: 73564

== ENCOUNTER → 2025-01-30 | Outpatient (CLI) | payer MEDICARE, MEDICAID, SELFPAY ==
[2025-01-30 13:15] LABS: Anion Gap 11 (5-15); BUN 9 mg/dL (4-19); BUN/Creat Ratio 13.4 RATIO (10-20); Calcium,Total 9.1 mg/dL (7.6-11.0); Carbon Dioxide 23.4 mmol/L (21.0-32.0); Chloride 106 mmol/L (98-108); Cholesterol 151 mg/dL (<=200); Glucose 103 mg/dL (70-99); Low Density Lipoprotein Calc. 66 mg/dL; Potassium 3.9 mmol/L (3.3-5.1); Triglycerides 138 mg/dL; Very Low Density Lipoprotein 28 mg/dL (5-40); cholesterol:hdl ratio screen 2.64
== END | disposition home or self-care (01) ==
LOC: MFPLAB 10:19
PROVIDERS: PCP Family Medicine; Visit Provider Family Medicine
DX: E78.5 Hyperlipidemia, unspecified (principal)
CPT/HCPCS: 36415; 80048; 80061

== ENCOUNTER → 2025-02-10 | Outpatient (CLI) | payer MEDICARE, MEDICAID, SELFPAY | END | disposition home or self-care (01) | LOC: MTLAB 09:20 | PROVIDERS: PCP Family Medicine | DX: N39.0 Urinary tract infection, site not specified (principal) | CPT/HCPCS: 87086; 87088 ==